=== PATIENT | female | born 1935 | race Caucasian/White ===

== ENCOUNTER 2023-06-01 07:39 | Observation (INO) | payer OTHER ==
--- OUTSIDE RECORDS SUMMARY | 2023-06-01 07:43 | XMS REPORT | Continuity of Care Document ---
:1935 Author Organization [facility] t Address [address] [facility] [address] [place] [address] Care Team Providers Name Role Phone Tal Casarez MD Primary Care Physician Arjun ESCALONA, Francisco Hernandez Attending Clinician LUIGI NAVARRO Attending Clinician Unavailable MD MONTERROSO DDS JAIME D Attending Clinician Unavailable CARLTON MONTERROSO Attending Clinician Unavailable CARLA GONZALEZ Attending Clinician Unavailable SKYLER MORALES Attending Clinician Unavailable Vijay Rosario Attending Clinician Vijay Rosario Attending Clinician CARLTON MONTERROSO Admitting Clinician Unavailable MD MONTERROSO DDS JAIME D Admitting Clinician Unavailable Payers Payer Name Policy Type Policy Number Effective Date Expiration Date S ource Problems Condition Condition Condition Status Onset Resolution Last Treating Co mments Source Name Details Category Date Date Treatment Clinician Date Essential Essential Disease Active 2020-07 [facility] hypertensi hypertensi 07-28 on on 00:00: Hospita 00 l Hypercalce Hypercalce Disease Active 2020-07 M ethodi maggy maggy 07-28 00:00: Hospita 00 l Inflammato Inflammato Disease Active 2020-07 M ethodi ry ry 07-25 st conditions conditions 00:00: Ho spita of jaws of jaws 00 l 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 Social History Social Habit Start Date Stop Date Quantity Comments Source [facility] Alcohol intake 2021-05-27 2021-05-27 Current Gnosticism 00:00:00 00:00:00 non-drinker of Hospital alcohol (finding) History of Social 2021-05-27 2021-05-[address] function 00:00:00 00:00:00 Hospital Tobacco use and 2018-08-06 2018-08-06 Smokeless Gnosticism exposure 00:00:00 00:00:00 tobacco non-user Hospital Social History 2016-06-24 2016-06-24 [facility] 05:59:00 05:59:00 Sex Ass[birth year] At [birth year] Gnosticism 00:00:00 00:00:00 [facility] Smoking Status Start Date Stop Date Source Never smoked tobacco Gnostic[facility] H ospital Medications Ordered Filled Start Stop Current Ordering Indication Dosage Frequency Signature Comments Components Source Medication Medication Date Date Medication? Clinician (SIG) Name Name aspirin 2020-07 Yes 81mg QD Take 81 mg Meth taqueria (ECOTRIN) 1-[address] 81 MG 16:42: daily. Hospita enteric 45 l coated tablet FOLIC 2020-07 Yes 1{tbl} QD Take 1 [facility] ACID/MULTIV 1-[address] IT-MIN/LUTE 16:42: mouth Hospi ta IN (CENTRUM 45 every l SILVER morning. ORAL) cholecalcif 2020-07 Yes 800U QD Take 800 Me thodi nelly, 1-[address] vitamin D3, 16:42: mouth Hospi ta (VITAMIN 45 daily. l D3) 1,000 unit tablet calcium 2020-07 Yes Q.5D Take by [facility] carbonate 1-[address] (CALTRATE 16:42: (two) Hospita 600 ORAL) 45 times a l day. chlorhexidi 2020-07 Yes 15mL Q.5D Apply 15 Me thodi ne 1-[address] (PERIDEX) 00:00: mouth or Hosp duran 0.12 % 00 throat 2 l solution (two) times a day. All further refills through Dr. Yoli galloway 2020-07 Yes Use daily M ethodi e glycol 1-[address] (MIRALAX) 00:00: package Hospi ta 17 gram 00 instructio l packet ns for constipati on. It is over-the-c ounter acetaminoph 2020-07 Yes Use as Meth taqueria en 1-[address] (TYLENOL) 00:00: package Hospi ta 325 MG 00 instructio l tablet ns for pain. It is over-the-c ounter bisacodyL 2020-07 Yes If no BM Meth taqueria (DULCOLAX) 1-12 by 05/29, st 10 mg 00:00: please use Hospit a suppository 00 suppositor l y per package instructio ns. It is over-the-c ounter lisinopril Yes 1{tbl} QD Take 1 Met hodi (PRINIVIL,Z 1-[address] ESTRIL) 5 00:00: mouth Hospita mg tablet 00 every l morning. simvastatin Yes 1{tbl} QD Take 1 Me thodi (ZOCOR) 40 1-[address] MG tablet 00:00: mouth Hospita 00 nightly. l metoprolol Yes 1{tbl} Q.5D Take 1 Met hodi succinate 1-[address] XL 00:00: mouth 2 Hospita (TOPROL-XL) 00 (two) l 50 mg 24 hr times a tablet day. amLODIPine Yes 5mg QD Take 5 mg Me thodi (NORVASC) 5 1-[address] mg tablet 00:00: every Hospita 00 morning. l Immunizations Ordered Immunization Filled Immunization Date Status Commen ts Source Name Name [facility] COVID-19 MRNA Unknown Completed Met [facility] COVID-19 MRNA Unknown Completed Met [facility] FLUZONE HIGH-DOSE PF Unknown Completed [facility] Procedures Procedure Date / Time Performed Performing Clinician Sourc e XR CHEST 2 VW 2022-07-05 17:03:[facility] LEFT 2022-07-05 17:02:44 [facility] Plan of Care Planned Activity Planned Date Details Comments Source Future Scheduled 2023-05-10 SHINGLES VACCINES (1 Met [facility] Test 16:45:05 of 2) [code = SHINGLES VACCINES (1 of 2)] Future Scheduled 2023-05-10 65+ PNEUMOCOCCAL [facility] Test 16:45:05 VACCINE (1 - PCV) [code = 65+ PNEUMOCOCCAL VACCINE (1 - PCV)] Future Scheduled 2023-05-10 COVID-19 VACCINE (3 - [facility] Test 16:45:05 season) [code = COVID-19 VACCINE (3 - season)] Future Scheduled 2023-05-10 INFLUENZA VACCINE (#1) [facility] Test 16:45:05 [code = INFLUENZA VACCINE (#1)] Encounters Start End Encounter Admission Attending Care Care Encounter Source Date/Time Date/Time Type Type Clinicians Facility Department ID 2022-07-05 2022-07-05 Office Arjun, 1.2.840.1 [id number] Method[facility] 11:00:00 14:40:27 Visit Francisco Hernandez [id number] 3.430.2.7 Hospit a .3.330928 l .8 2022-07-05 2022-07-05 Outpatient [facility] [id number] [place] 00:00:00 00:00:00 767 Method i 2022-07-05 2022-07-05 Outpatient [facility] [id number] [place] 00:00:00 00:00:00 914 Method i 2022-07-05 2022-07-05 Outpatient [facility] [id number] [place] 00:00:00 00:00:[address] 2022-07-05 2022-07-05 Travel 1.2.840.1 [id number] [facility] 00:00:00 00:00:[address] 3.430.2.7 0.2.7.3.698 Ho spita .3.106614 084.8 l .8 2021-06-16 2021-06-16 Outpatient [facility] [id number] [place] 00:00:00 00:00:[address] 2021-06-16 2021-06-16 Outpatient [facility] [id number] [place] 00:00:00 00:00:[address] 2021-06-16 2021-06-16 Outpatient [facility] [id number] [place] 00:00:00 00:00:[address] 2021-05-25 2021-05-28 Inpatient RAGHAVON, LUIGI [facility] [id number] [place] 00:00:00 00:00:[address] 2021-05-24 2021-05-24 Outpatient GATENO, [facility] [id number] [place] 00:00:00 00:00:00 CARLTON [address] 2021-02-24 2021-02-24 Outpatient MAHMARIAN, [facility] [id number] [place] 00:00:00 00:00:00 CARLA [address] 2021-02-10 2021-02-10 Outpatient MAHMARIAN, [facility] [id number] [place] 00:00:00 00:00:00 CARLA [address] 2021-01-19 2021-01-19 Outpatient MORALES, [facility] [id number] [place] 00:00:00 00:00:00 SKYLER [address] 2021-01-08 2021-01-08 Outpatient MORALES, [facility] [id number] [place] 00:00:00 00:00:00 SKYLER [address] 2021-01-08 2021-01-08 Outpatient MORALES, [facility] [id number] [place] 00:00:00 00:00:00 SKYLER [address] 2021-01-08 2021-01-08 Outpatient MORALES, [facility] [id number] [place] 00:00:00 00:00:00 SKYLER [address] 2021-01-08 2021-01-08 Outpatient MORALES, [facility] [id number] [place] 00:00:00 00:00:00 SKYLER [address] 2021-01-08 2021-01-08 Outpatient MORALES, [facility] [id number] [place] 00:00:00 00:00:00 SKYLER [address] 2020-12-02 2020-12-02 Outpatient MORALES, [facility] [id number] [place] 00:00:00 00:00:00 SKYLER [address] 2020-09-09 2020-09-09 Outpatient MORALES, [facility] [id number] [place] 00:00:00 00:00:00 SKYLER [address] 2020-06-17 2020-06-17 Outpatient MORALES, [facility] [id number] [place] 00:00:00 00:00:00 SKYLER [address] 2020-06-17 2020-06-17 Outpatient [facility] [id number] [place] 00:00:00 00:00:[address] 2020-06-17 2020-06-17 Outpatient MORALES, [facility] [id number] [place] 00:00:00 00:00:00 SKYLER [address] 2020-06-17 2020-06-17 Outpatient MORALES, [facility] [id number] [place] 00:00:00 00:00:00 SKYLER [address] 2020-06-17 2020-06-17 Outpatient MORALES, [facility] [id number] [place] 00:00:00 00:00:00 SKYLER [address] 2020-03-18 2020-03-18 Outpatient MORALES, [facility] [id number] [place] 00:00:00 00:00:00 SKYLER [address] 2019-12-25 2019-12-25 Outpatient MORALES, [facility] [id number] [place] 00:00:00 00:00:00 SKYLER [address] 2019-12-25 2019-12-25 Outpatient MORALES, [facility] [id number] [place] 00:00:00 00:00:00 SKYLER [address] 2019-12-25 2019-12-25 Outpatient MORALES, [facility] [id number] [place] 00:00:00 00:00:00 SKYLER [address] 2019-12-25 2019-12-25 Outpatient MORALES, [facility] [id number] [place] 00:00:00 00:00:00 SKYLER [address] 2019-09-25 2019-09-25 Outpatient MORALES, [facility] [id number] [place] 00:00:00 00:00:00 SKYLER 328 Method i 2019-06-26 2019-06-26 Outpatient CARMEN, [facility] [id number] [place] 00:00:00 00:00:00 SKYLER 168 Method i 2019-06-26 2019-06-26 Outpatient CARMEN [facility] [id number] [place] 00:00:00 00:00:00 SKYLER 167 Method i 2016-08-30 2016-08-31 Outpt Diag nullFlavo [facility] [id number] Memoria 16:57:00 05:59:00 Services r Outpatient 18 l Imaging Miguel [place] 2016-08-30 2016-08-31 Outpt Diag nullFlavo [facility] [id number] Memoria 16:57:00 05:59:00 Services r Outpatient 18 l Carolin [place] 2016-08-30 2016-08-30 Outpatient Vijay Rosario 2.16.840. 2.16.840.1 . [id number] 10:57:00 23:59:00 Stevie [id number] 18 Pablo 3.615.24 5.24 2016-06-23 2016-06-24 Outpt Diag nullFlavo [facility] [id number] Memoria 18:11:00 05:59:00 Services r Outpatient 17 l Imaging Miguel [place] 2016-06-23 2016-06-24 Outpt Diag nullFlavo [facility] [id number] Memoria 18:11:00 05:59:00 Services r Outpatient 17 l Imaging Miguel [place] 2016-06-23 2016-06-23 Outpatient [facility]ij[facility] [id number] 12:11:00 23:59:00 Stevie Shah 2015-06-25 2015-06-26 Outpt Diag nullFlavo [facility] [id number] Memoria 18:43:00 05:59:00 Services r Outpatient 16 l Carolin [place] 2015-06-25 2015-06-26 Outpt Diag nullFlavo [facility] [id number] Memoria 18:43:00 05:59:00 Services r Outpatient 16 l Imaging Miguel [place] 2015-06-25 2015-06-25 Outpatient Vijay Rosario OIP [facility] [id number] 12:43:00 23:59:00 Stevie Shah 2014-07-01 2014-07-02 Outpt Diag nullFlavo [facility] [id number] Memoria 15:11:00 05:59:00 Services r Outpatient 15 l Imaging - [facility] 2014-07-01 2014-07-02 Outpt Diag nullFlavo [facility] [id number] Memoria 15:11:00 05:59:00 Services r Outpatient 15 l Imaging - [facility] 2014-07-01 2014-07-01 Outpatient Vijay Rosario 2.16.840. 2.16.840.1 . [id number] 09:11:00 23:59:00 A W [id number] 15 3.615.0.1 5.0.797 07 3527-04-25 2013-11-09 Outpt Diag nullFlavo [facility] [id number] Memoria 17:38:00 04:59:00 Services r Outpatient 14 l Imaging - [facility] 2013-11-08 2013-11-09 Outpt Diag nullFlavo [facility] [id number] Memoria 17:38:00 04:59:00 Services r Outpatient 14 l Imaging - [facility] 2013-11-08 2013-11-08 Outpatient Vijay Rosario 2.16.840. 2.16.840.1 . [id number] 12:38:00 23:59:00 A W [id number] 14 3.615.0.1 5.0.659 42 0732-04-22 2013-11-06 Outpt Diag nullFlavo [facility] [id number] Memoria 13:50:00 04:59:00 Services r Outpatient 13 l Imaging - [facility] 2013-11-05 2013-11-06 Outpt Diag nullFlavo [facility] [id number] Memoria 13:50:00 04:59:00 Services r Outpatient 13 l Imaging - [facility] 2013-11-05 2013-11-05 Outpatient Vijay Rosario 2.16.840. 2.16.840.1 . [id number] 08:50:00 23:59:00 A W [id number]. [id number] 13 3.615.0.1 5.0.101 01 Results Test Description Test Time Test Comments Results Result Comments Source SARS-CoV-2 (COVID-19) RNA [Presence] in Respiratory sp ecimen by 2021-05-24 16:31:36 HERBIE with probe detection Test Item Value Reference Range Interpretation Comme nts SARS-CoV-2 (COVID-19) RNA [Presence] in Respiratory Not detected No t-Detected specimen by HERBIE with probe detection (test code = 98837-0) Whether patient is employed in a healthcare setting (test code = 33438-4) Whether the patient has symptoms related to condition of interest (test code = 65642-9) Patient was hospitalized because of this condition (test code = 43667-2) Whether the patient was admitted to intensive care unit (ICU) for condition of interest (test code = 16010-2) Whether patient resides in a congregate care setting (test code = 60035-4) YASEMIN RAPP
[2023-06-01] MEDS ORDERED: MORPHINE 2 MG/ML SYR ONE ×3 (08:17→09:22)
[2023-06-01 08:35] LABS: Absolute Lymphocytes (CBC) 1.4 K/uL (0.7-4.9); Hematocrit 35.5 % (36.0-45.0); Lymphocytes % 24.8 % (15.3-44.8); MPV 7.7 fL (7.6-11.3); Platelets 306 thou/uL (152-406); RBC Red Blood Cell Count 3.73 M/uL (3.86-4.86)
[2023-06-01 08:48] LABS: Potassium 3.8 mEq/L (3.5-5.1)
--- NOTE | 2023-06-01 09:49 | RAD REPORT ---
EXAM DESCRIPTION: CTAbdomen Pelvis W Contrast - 06/01/2023 9:32 am CLINICAL HISTORY: right leg pain COMPARISON: CT ABD PELVIS W CONTRAST dated 01/24/2008 TECHNIQUE: CT of the abdomen and pelvis was performed. All CT scans are performed using dose optimization technique as appropriate and may include automated exposure control or mA/KV adjustment according to patient size. FINDINGS: Lower chest: Mild coronary artery calcifications. Aortic root calcifications. Liver: Mild intrahepatic biliary ductal dilatation. No suspicious liver mass. Biliary: Cholecystectomy. Extrahepatic biliary duct dilatation is likely related to the postcholecyst ectomy state. Stomach: No significant focal abnormality. Duodenum: No significant focal abnormality. Pancreas: No significant abnormality. Spleen: No significant abnormality. Adrenal: No suspicious lesions. Kidney/ureter: No hydronephrosis. No renal calculi. Too small to characterize and/or benign appearing renal lesions are noted. Retroperitoneum: No retroperitoneal adenopathy. Vascular: No aneurysm. Bowel: Moderate stool burden. No bowel obstruction. No appendicitis.. Peritoneum: No ascites or free air. Bladder: Grossly unremarkable. Reproductive: No adnexal masses. Bones: No acute fracture. Grade 1 anterolisthesis of L4 on L5 . Other: n/a IMPRESSION: No acute intra-abdominal or pelvic finding.
[2023-06-01] MEDS ORDERED: predniSONE 20 MG TAB ONE ×2 (11:57→15:47)
--- NOTE | 2023-06-01 12:06 | RAD REPORT ---
EXAM DESCRIPTION: RAD - Lumbar Spine 3 Views - 06/01/2023 12:01 pm CLINICAL HISTORY: PAIN COMPARISON: No comparisons FINDINGS/IMPRESSION: No acute fracture. Slight compression deformity L3 is favored chronic. Grade 1 anterolisthesis of L4 on L5. Mild thoracolumbar curvature. Osteopenia. Disc heights are fairly well-m aintained. Surgical clips in right upper quadrant.
[2023-06-01 12:54] LABS: Urine Bilirubin NEGATIVE (Negative); Urine Blood Negative (Negative); Urine Clarity Clear (Clear); Urine Color Light-Yellow (Yellow); Urine Glucose NEGATIVE (Negative); Urine Protein NEGATIVE (Negative); Urine Urobilinogen Normal (Normal)
[2023-06-01 12:55] LABS: Specific Gravity > 1.030 (1.005-1.030)
--- NOTE | 2023-06-01 13:13 | EDPHYS ---
Physician Documentation [facility] Name: Ernestina Guzman Age: 88 yrs Sex: Female : 1935 Arrival Date: 06/01/2023 Time: 07:39 Bed 13 Private MD: ED Physician Jaren Dozier HPI: 06/01 13:14 This 88 yrs old Female presents to ER via Wheelchair with complaints of Leg Pain - kdr Right. 13:14 The patient presents with pain, that is chronic. kdr 13:16 Patient presents to the ED today with right upper leg pain. Patient has had this kdr discomfort for the past week or 2. She saw her primary care physician last week for the same issue. At that time an ultrasound was ordered but the results were unknown to the patient. Patient continues to have pain in fact is worse today. States that she cannot get comfortable in any position. Patient denies any trauma or prior history of similar pain in the past due to any known issue. Patient is otherwise without complaint. Onset: The symptoms/episode began/occurred Pain has been ongoing for a week or 2 but became worse today, this morning. Severity of symptoms: At their worst the symptoms were moderate severe incapacitating just prior to arrival, in the emergency department the symptoms have improved mildly. The patient has not experienced similar symptoms in the past. The patient has been recently seen by a physician: Dr. Casarez in the office, 1 week(s) ago. Historical: - Allergies: 07:48 No Known Allergies; ll1 - PMHx: 07:48 Hypertensive disorder; Hypercholesterolemia; ll1 - Immunization history:: Adult Immunizations up to date. - Social history:: Smoking status: Patient denies any tobacco usage or history of. ROS: 13:16 Constitutional: Negative for fever, chills, and weight loss, Eyes: Negative for injury, kdr pain, redness, and discharge, ENT: Negative for injury, pain, and discharge, Neck: Negative for injury, pain, and swelling, Cardiovascular: Negative for chest pain, palpitations, and edema, Respiratory: Negative for shortness of breath, cough, wheezing, and pleuritic chest pain, Abdomen/GI: Negative for abdominal pain, nausea, vomiting, diarrhea, and constipation, Back: Negative for injury and pain, : Negative for injury, bleeding, discharge, and swelling, Skin: Negative for injury, rash, and discoloration, Neuro: Negative for headache, weakness, numbness, tingling, and seizure activity. Psych: Negative for depression, anxiety, suicide ideation, homicidal ideation, and hallucinations, Allergy/Immunology: Negative for hives, rash, and allergies, Endocrine: Negative for neck swelling, polydipsia, polyuria, polyphagia, and marked weight changes, Hematologic/Lymphatic: Negative for swollen nodes, abnormal bleeding, and unusual bruising, 13:16 MS/extremity: Positive for swelling, of the Bilaterally, Exam: 13:16 Constitutional: This is a well developed, well nourished patient who is awake, alert, kdr and in mild distress. Head/Face: Normocephalic, atraumatic. Eyes: Pupils equal round and reactive to light, extra-ocular motions intact. Lids and lashes normal. Conjunctiva and sclera are non-icteric and not injected. Cornea within normal limits. Periorbital areas with no swelling, redness, or edema. Neck: Trachea midline, no thyromegaly or masses palpated, and no cervical lymphadenopathy. Supple, full range of motion without nuchal rigidity, or vertebral point tenderness. No Meningismus. Chest/axilla: Normal chest wall appearance and motion. Nontender with no deformity. No lesions are appreciated. Cardiovascular: Regular rate and rhythm with a normal S1 and S2. No gallops, murmurs, or rubs. Normal PMI, no JVD. No pulse deficits. Respiratory: Lungs have equal breath sounds bilaterally, clear to auscultation and percussion. No rales, rhonchi or wheezes noted. No increased work of breathing, no retractions or nasal flaring. Abdomen/GI: Soft, non-tender, with normal bowel sounds. No distension or tympany. No guarding or rebound. No evidence of tenderness throughout. Back: No spinal tenderness. No costovertebral tenderness. Full range of motion. Skin: Warm, dry with normal turgor. Normal color with no rashes, no lesions, and no evidence of cellulitis. Neuro: Awake and alert, GCS 15, oriented to person, place, time, and situation. Cranial nerves II-XII grossly intact. Motor strength 5/5 in all extremities. Sensory grossly intact. Cerebellar exam normal. Normal gait. Psych: Awake, alert, with orientation to person, place and time. Behavior, mood, and affect are within normal limits. 13:16 Musculoskeletal/extremity: Patient has pain to the right upper extremity laterally. It does not extend down past her knee. Pain does not appear to be in a typical sciatica nerve distribution. Pain appears to be more diffuse and lateral. Her lower extremities are slightly swollen (according to the patient) but they appear more swollen on the right than the left. The patient's distal temperature and sensation in both extremities is equal.. Vital Signs: 07:45 BP 187 / 99; Pulse 93; Resp 17; Pulse Ox 99% ; rs5 07:48 Weight 53.52 kg; Height 4 ft. 11 in. ; Pain 10/10; ll1 10:08 BP 168 / 80; Pulse 87; Resp 16; Pulse Ox 99% on R/A; rs5 11:20 BP 137 / 76; Pulse 80; Resp 17; Pulse Ox 99% on R/A; rs5 12:10 BP 145 / 82; Pulse 76; Resp 17; Pulse Ox 99% on R/A; rs5 07:48 Body Mass Index 23.83 (53.52 kg, 149.86 cm) ll1 07:48 Pain Scale: Adult ll1 MDM: 11:41 Data reviewed: vital signs, nurses notes. ED course: I discussed the case with Dr. sherry Casarez. He asked me to start the patient on steroids and have her follow-up with him this next week. Prior to discharge he asked that the plain films of the lumbar spine be performed as well. The patient is otherwise stable in the ED and much improved with pain medication.. 13:13 Patient medically screened. [facility] 06/01 07:57 Order name: CBC with Diff; Complete Time: 09:04 [facility] 06/01 07:57 Order name: Chem 7; Complete Time: 09:04 [facility] 06/01 07:57 Order name: Urinalysis w/ reflexes; Complete Time: 13:04 [facility] 06/01 15:12 Order name: Basic Metabolic Panel EDMS 06/01 15:12 Order name: Basic Metabolic Panel EDMS 06/01 15:12 Order name: CBC with Automated Diff EDMS 06/01 15:12 Order name: CBC with Automated Diff EDMS 06/01 07:57 Order name: CT Abd/Pelvis - IV Contrast Only; Complete Time: 09:53 [facility] 06/01 10:22 Order name: Lumbar Spine (3 Views) XRAY; Complete Time: 12:09 kdr 06/01 13:14 Order name: US Extremity Venous Unilateral Ltd; Complete Time: 14:57 kdr 06/01 13:14 Order name: US LE Artery Uni Ltd; Complete Time: 14:57 kdr 06/01 07:57 Order name: Misc. Order: Ultrasound record from last week; Complete Time: 08:26 kdr 06/01 09:54 Order name: VS Recheck; Complete Time: 10:07 kdr Administered Medications: 08:30 Drug: morphine IVP or IV 1 mg IVP once over 2 mins Route: IVP; Infused Over: 2 mins; rs5 Site: left wrist; 08:44 Follow up: Response: No adverse reaction; Pain is unchanged, physician notified rs5 08:30 Drug: Ondansetron IVP 4 mg IVP once; over 2 minutes Route: IVP; Site: left wrist; rs5 08:44 Follow up: Response: No adverse reaction rs5 08:45 Drug: morphine IVP or IV 1 mg IVP once over 2 mins Route: IVP; Infused Over: 2 mins; rs5 Site: left wrist; 08:59 Follow up: Response: No adverse reaction; Pain is unchanged, physician notified rs5 09:00 Drug: morphine IVP or IV 1 mg IVP once over 2 mins Route: IVP; Infused Over: 2 mins; rs5 Site: left wrist; 09:30 Follow up: Response: No adverse reaction; Pain is decreased rs5 11:44 Drug: predniSONE PO 40 mg PO once Route: PO; rs5 12:35 Follow up: Response: No adverse reaction rs5 13:20 Drug: traMADol PO 50 mg PO once Route: PO; rs5 14:00 Follow up: Response: Pain is decreased rs5 Disposition Summary: 06/01/23 13:13 Hospitalization Ordered Notes: Hospitalization Status: Observation kdr Provider: Tripp Casarez Condition: Fair kdr Problem: an ongoing problem kdr Symptoms: have improved kdr Bed/Room Type: Standard kdr Location: Telemetry/MedSurg (observation)(06/01/23 18:02) em1 Room Assignment: 222(06/01/23 18:02) em1 Diagnosis - Pain in right thigh kdr Forms: - Medication Reconciliation Form kdr - SBAR form kdr - Leadership Thank You Letter kdr Signatures: Dispatcher [employer] Jaren Rubi MD MD kdr Giuseppe, Brian em1 Kalpana Gentile, RN RN ll1 Missy Dorsey RN RN kb3 Jeff Almaraz RN RN rs5 Corrections: (The following items were deleted from the chart) 16:27 13:13 Telemetry/MedSurg (observation) kdr kb3 16:27 13:13 kdr kb3 18:02 16:27 [facility] ER HOLD kb3 em1 18:02 16:27 ERHOLD- kb3 em1
--- NOTE | 2023-06-01 13:13 | ER ---
Nurse's Notes [facility] Name: Ernestina Guzman Age: 88 yrs Sex: Female : 1935 Arrival Date: 06/01/2023 Time: 07:39 Bed 13 Private MD: Diagnosis: Pain in right thigh Presentation: 06/01 07:48 Chief complaint: Patient states: R leg pain worse than usual since last night. Saw Dr. rizwana Casarez last week for the same, waiting for results. Coronavirus screen: Client denies travel out of the [place] in the last 14 days. At this time, the client does not indicate any symptoms associated with coronavirus-19. Ebola Screen: Patient denies travel to an Ebola-affected area in the 21 days before illness onset. Initial Sepsis Screen: Does the patient meet any 2 criteria? No. Patient's initial sepsis screen is negative. Does the patient have a suspected source of infection? Yes: Bone or joint infection. Risk Assessment: Do you want to hurt yourself or someone else? Patient reports no desire to harm self or others. Onset of symptoms was May 25, 2020. 07:48 Method Of Arrival: Wheelchair ll1 07:48 Acuity: KWABENA 3 ll1 Triage Assessment: 07:50 General: Appears uncomfortable, Behavior is calm, cooperative, appropriate for age. ll1 Pain: Complains of pain in right leg Pain currently is 10 out of 10 on a pain scale. Quality of pain is described as aching, throbbing. Musculoskeletal: Reports pain in right leg. Historical: - Allergies: 07:48 No Known Allergies; ll1 - PMHx: 07:48 Hypertensive disorder; Hypercholesterolemia; ll1 - Immunization history:: Adult Immunizations up to date. - Social history:: Smoking status: Patient denies any tobacco usage or history of. Screenin:45 [facility] ED Fall Risk Assessment (Adult) History of falling in the last 3 months, rs5 including since admission No falls in past 3 months (0 pts) Confusion or Disorientation No (0 pts) Intoxicated or Sedated No (0 pts) Impaired Gait Yes (1 pt) Mobility Assist Device Used Yes (1 pt) Altered Elimination No (0 pt) Score/Fall Risk Level 0 - 2 = Low Risk Oriented to surroundings, Maintained a safe environment, Educated pt \T\ family on fall prevention, incl call for assistance when getting out of bed, Assessed \T\ reinforced patient's understanding of fall precautions, Provided non-skid footwear. Abuse screen: Denies threats or abuse. Nutritional screening: No deficits noted. Tuberculosis screening: No symptoms or risk factors identified. Assessment: 07:45 General: Appears in no apparent distress. uncomfortable, Behavior is cooperative. Pain: rs5 Complains of pain in right upper leg Pain does not radiate. Pain currently is 8 out of 10 on a pain scale. Quality of pain is described as aching, Pain began several days ago, worse today Is. Neuro: Level of Consciousness is awake, alert, obeys commands, Oriented to person, place, time, situation. Cardiovascular: Heart tones S1 S2 present Rhythm is regular. Respiratory: Airway is patent Respiratory effort is even, unlabored, Respiratory pattern is regular, symmetrical, Breath sounds are clear bilaterally. GI: Abdomen is round non-distended, Bowel sounds present X 4 quads. Abd is soft and non tender X 4 quads. : No signs and/or symptoms were reported regarding the genitourinary system. EENT: No signs and/or symptoms were reported regarding the EENT system. Derm: Skin is intact, Skin is pink, warm \T\ dry. Musculoskeletal: Range of motion: limited in right leg Pt denies recent falls. Swelling noted to lower extremities bilat. 08:44 Pain: Complains of pain in right leg Pain does not radiate. Pain currently is 7 out of rs5 10 on a pain scale. Quality of pain is described as aching, Is continuous. 08:44 Reassessment: Provider notified pt is experiencing pain. rs5 08:59 Reassessment: Pain is unchanged, provider notified pt is experiencing pain. rs5 08:59 Pain: Noted to be grimacing. rs5 09:10 Reassessment: Pt left for CT scan. rs5 09:30 Reassessment: Patient denies pain at this time. Patient states feeling better. Patient rs5 states symptoms have improved. Pt back from CT scan. 10:02 Reassessment: Patient and/or family updated on plan of care and expected duration. Pain rs5 level reassessed. Patient is alert, oriented x 3, equal unlabored respirations, skin warm/dry/pink. 11:11 Reassessment: Pt has been hospitalized, see [facility] for continued pt care. rs5 Vital Signs: 07:45 BP 187 / 99; Pulse 93; Resp 17; Pulse Ox 99% ; rs5 07:48 Weight 53.52 kg; Height 4 ft. 11 in. ; Pain 10/10; ll1 10:08 BP 168 / 80; Pulse 87; Resp 16; Pulse Ox 99% on R/A; rs5 11:20 BP 137 / 76; Pulse 80; Resp 17; Pulse Ox 99% on R/A; rs5 12:10 BP 145 / 82; Pulse 76; Resp 17; Pulse Ox 99% on R/A; rs5 07:48 Body Mass Index 23.83 (53.52 kg, 149.86 cm) ll1 07:48 Pain Scale: Adult ll1 ED Course: 07:42 Patient arrived in ED. mg5 07:43 Jaren Dozier MD is Attending Physician. kdr 07:45 Patient has correct armband on for positive identification. Bed in low position. Call rs5 light in reach. Side rails up X2. 07:48 Arm band placed on Patient placed in an exam room, on a stretcher. ll1 07:49 Triage completed. ll1 07:51 Jeff Almaraz, GABRIELLA is Primary Nurse. rs5 08:29 Inserted saline lock: 24 gauge in left wrist, using aseptic technique. Blood collected. ds4 Missed attempt(s): 24 gauge in right forearm. Bleeding controlled, band aid applied, catheter tip intact. 09:34 CT Abd/Pelvis - IV Contrast Only In Process Unspecified. EDMS 12:03 Lumbar Spine (3 Views) XRAY In Process Unspecified. EDMS 13:11 Tripp Casarez MD is Hospitalizing Provider. kdr 14:06 US Extremity Venous Unilateral Ltd In Process Unspecified. EDMS 14:06 US LE Artery Uni Ltd In Process Unspecified. EDMS 19:10 No provider procedures requiring assistance completed. Patient admitted, IV remains in rs5 place. Administered Medications: 08:30 Drug: morphine IVP or IV 1 mg IVP once over 2 mins Route: IVP; Infused Over: 2 mins; rs5 Site: left wrist; 08:44 Follow up: Response: No adverse reaction; Pain is unchanged, physician notified rs5 08:30 Drug: Ondansetron IVP 4 mg IVP once; over 2 minutes Route: IVP; Site: left wrist; rs5 08:44 Follow up: Response: No adverse reaction rs5 08:45 Drug: morphine IVP or IV 1 mg IVP once over 2 mins Route: IVP; Infused Over: 2 mins; rs5 Site: left wrist; 08:59 Follow up: Response: No adverse reaction; Pain is unchanged, physician notified rs5 09:00 Drug: morphine IVP or IV 1 mg IVP once over 2 mins Route: IVP; Infused Over: 2 mins; rs5 Site: left wrist; 09:30 Follow up: Response: No adverse reaction; Pain is decreased rs5 11:44 Drug: predniSONE PO 40 mg PO once Route: PO; rs5 12:35 Follow up: Response: No adverse reaction rs5 13:20 Drug: traMADol PO 50 mg PO once Route: PO; rs5 14:00 Follow up: Response: Pain is decreased rs5 Medication: 12:36 VIS not applicable for this client. rs5 Outcome: 13:13 Decision to Hospitalize by Provider. kdr 19:10 Admitted to Med/surg accompanied by nurse, via wheelchair, on monitor, with chart, rs5 19:10 Condition: stable 19:10 Instructed on the need for admit, 19:23 Patient left the ED. la4 Signatures: Dispatcher [employer] EDMS Jaren Dozier MD MD kdr Swanson, Donovan ds4 Kalpana Gentile RN RN ll1 Jeff Almaraz RN RN rs5 Maria D Steven mg5 Cali Canas RN RN la4 Corrections: (The following items were deleted from the chart) 09:24 08:40 morphine IVP or IV 1 mg IVP in left wrist over 2 mins rs5 rs5 12:36 10:08 BP 168 / 80; Pulse 87bpm; Resp 16bpm; Pulse Ox 99% 2 lpm Nasal Cannula; rs5 rs5
[2023-06-01] MEDS ORDERED: TRAMADOL HCL 50 MG TAB ONE (13:36)
--- NOTE | 2023-06-01 14:25 | RAD REPORT ---
EXAM DESCRIPTION: US - Extremity Venous Uni Ltd - 06/01/2023 2:04 pm CLINICAL HISTORY: Pain COMPARISON: 05/25/2023. TECHNIQUE: Real-time sonographic evaluation of the right lower extremity deep venous system was perf ormed. FINDINGS: Normal compressibility, flow augmentation, phasic flow and spontaneous flow is identified in the right lower extremity deep venous system. No intraluminal filling defects seen. IMPRESSION: No DVT in the right lower extremity.
--- NOTE | 2023-06-01 14:26 | RAD REPORT ---
EXAM DESCRIPTION: US - Lower Extremity Artery Uni Ltd - 06/01/2023 2:04 pm CLINICAL HISTORY: PAIN COMPARISON: No comparisons TECHNIQUE: Right lower extremity arterial Doppler examination was performed with waveform tracing. FINDINGS: Triphasic waveforms are seen throughout both lower extremity arterial systems to the level of the posterior tibial artery. Biphasic waveforms seen along the dorsalis pedis artery. Mild smooth atherosclerotic plaque along the right SFA. IMPRESSION: Mild peripheral vascular disease.
[2023-06-01] MEDS ORDERED: ACETAMINOPHEN 500 MG TAB PO PRN (15:05)
[2023-06-01] MEDS ORDERED: predniSONE 20 MG TAB PO ONE (15:16)
[2023-06-01] MEDS ORDERED: ACETAMINOPHEN 500 MG TAB ONE (15:47)
[2023-06-01] MEDS ORDERED: HYDROCODONE/APAP 5/325 MG TAB PO PRN (16:10)
[2023-06-01] MEDS ORDERED: ONDANSETRON 4 MG/2 ML VIAL IV PRN (16:11)
[2023-06-01] MEDS ORDERED: ONDANSETRON 4 MG/2 ML VIAL ONE (16:41)
[2023-06-01] MEDS ORDERED: HYDROCODONE/APAP 5/325 MG TAB ONE (16:41)
[2023-06-01] MEDS: ONDANSETRON 4 MG/2 ML VIAL IV PRN ×2 (17:05→20:40)
[2023-06-01 18:14] VITALS: BMI 23.8
[2023-06-01] MEDS ORDERED: INFLUENZA VACCINE (for 6+ mo) 0.5 ML DOSE IMVAC ONE (20:00)
[2023-06-01] MEDS: D5 0.9 NS 1,000 ML IV SCH (20:21)
[2023-06-01] MEDS: GABAPENTIN 100 MG CAP PO SCH (20:21)
--- NOTE | 2023-06-01 21:08 | HP ---
Date of Admission: 06/01/2023 Chief Complaint: Back pain, leg pain, and not feeling good. History Of Present Illness: This is an 88-year-old pleasant female patient who came into emergency r oom with above-mentioned problem of just not feeling good, having some lower back pain and right leg pain. Denies any fall or injury. No fever, chills. The patient started to have some nausea after s he came into emergency room. She was evaluated in ER and she required some narcotic pain medication for pain control, and she was not safe to go home as determined by ER physician, and I was contacted requesting admission to the hospital, and I saw her in the emergency room this evening and her daught er was present with her at bedside. Allergies: NO KNOWN ALLERGIES. Medications: 1.Aspirin 81 mg daily. 2.Caltrate Plus D 1 tablet 2 times a day. 3.Metoprolol succinate 50 mg takes 1 tablet 2 times a day. 4.Simvastatin 40 mg daily. Review of Systems: Musculoskeletal: As mentioned above. Constitutional: Generalized weakness. All other systems reviewed and negative. Past Medical History: Significant for hypertension, hyperlipidemia, retinal detachment, cataract, th e patient is legally blind, gastroesophageal reflux disease, right breast cancer, and osteoporosis. 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 Family History: Father had lupus. Sister had coronary artery disease. Social History: Negative for smoking and alcohol use. Physical Examination: Vital Signs: Height 4 feet 11 inches, weight 118 pounds, blood pressure 117/61, oxygen saturation 99 %, pulse , respiratory rate , temperature . General: The patient appears weaker than normal, not in any distress, but appears to be weak. HEENT: Head atraumatic, normocephalic. Conjunctivae nonerythematous. Sclerae white. Mouth, no thr ush or edema noted. Ears/Nose, no mass, lesion, discharge noted. Neck: Supple. No JVD, lymph nodes, bruit, thyromegaly noted. Lungs: Bilateral good equal air entry. Clear to auscultation. No rhonchi. No rales. Heart: Normal heart sounds, no murmur or gallop. Abdomen: Soft, bowel sounds normal. No guarding, rigidity, tenderness, mass, hepatosplenomegaly, dis tention, or bruit noted. Extremities: No leg edema. No calf tenderness. Skin: No rash, ulcer, cellulitis. Lymphatics: No lymph node enlargement in neck, supraclavicular, infraclavicular region. Neuro: No focal neurological deficit. Chest: Unremarkable. External Genitalia: Deferred. Rectal: Deferred. Labs: White count 5.7, hemoglobin 12.2, platelets 306. Sodium 131, potassium 3.8, chloride 98, bica rb 29, BUN 18, creatinine 1.08, glucose 103. CAT scan of the abdomen and pelvis done today with cont rast shows no acute abnormality. Lumbar spine x-ray shows evidence of degenerative changes and sligh t compression fracture of L3, appears to be chronic. There is also evidence of mild thoracolumbar cu rvature and anterolisthesis of L4 on L5. Venous Doppler of right leg negative for DVT. Right arteri al Doppler shows mild peripheral vascular disease. Impression: 1.Lumbar radiculopathy. 2.Hypertension. 3.Hyperlipidemia. 4.Osteoarthritis, multiple sites. 5.Hyponatremia. 6.Generalized weakness. 7.Debility. 8.Compression fracture of L3 spine. 9.Osteoporosis. 10.Peripheral vascular disease. Plan: We will go ahead and admit the patient to hospital for further evaluation and management of th is problem. We will go ahead and continue pain medication and nausea medication per order. One dose of prednisone was given in the emergency room. We will start her on gabapentin. Home medications w ill be continued per order. Maintenance IV fluid will be given as she is not eating, drinking much t jammie. Fall precaution was ordered. Consult Physical Therapy and I will see her tomorrow for followu p. Details and plan of treatment discussed with the patient and family. MACARIO/MODL Voice ID: [id number]
[2023-06-02 03:37] LABS: Absolute Lymphocytes (CBC) 0.6 K/uL (0.7-4.9); Lymphocytes % 14.1 % (15.3-44.8); MCV 93.6 fL (80-100); MPV 8.7 fL (7.6-11.3); Platelets 280 thou/uL (152-406); RBC Red Blood Cell Count 3.42 M/uL (3.86-4.86)
[2023-06-02 03:47] LABS: Potassium 4.1 mEq/L (3.5-5.1)
[2023-06-02] MEDS: GABAPENTIN 100 MG CAP PO SCH (08:10)
[2023-06-02] MEDS ORDERED: predniSONE 20 MG TAB PO ONE (08:37)
[2023-06-02] MEDS ORDERED: hydroCHLOROthiazide 12.5 MG CAP PO SCH (09:00)
[2023-06-02] MEDS ORDERED: MULTIVITAMIN TAB PO SCH (09:00)
[2023-06-02] MEDS ORDERED: lisinopriL 10 MG TAB PO SCH (09:00)
[2023-06-02] MEDS ORDERED: METOPROLOL XL 50 MG TAB PO SCH (09:00)
[2023-06-02] MEDS ORDERED: HOME MED 1 EA UNK (Lisinopril/Hydrochlorothiazide [Lisinopril-Hctz 10-12.5 Mg Tab] Tablet) PO SCH (09:00)
[2023-06-02 09:05] VITALS: O2SAT 98
[2023-06-02] MEDS: D5 0.9 NS 1,000 ML IV SCH (09:20)
--- NOTE | 2023-06-02 15:15 | DS ---
Date of Discharge: 06/02/2023 Disposition: Discharged to go home. Physical Examination: HEENT: Unremarkable. Lungs: Clear to auscultation. Heart: Sounds normal. Abdomen: Soft. Bowel sounds normal. No guarding, rigidity, tenderness, distention. Extremities: No leg edema. Discharge Medications And Instructions: 1.Continue prior home medication. 2.Prednisone 10 mg, patient to take 3 tablets by mouth daily for 3 days, then 2 tablets daily for 3 days, then 1 tablet daily for 3 days, then stop, take it with food. 3.Gabapentin 100 mg, takes 1 capsule by mouth 2 times a day. 4.Follow up at my office week after next. Hospital Course: This is an 88-year-old very pleasant female patient came into emergency room yester day with complaints of vague back pain and right leg pain. Please see dictated H and P for more info rmation. After patient was evaluated in the ER, she was admitted to the hospital. I saw her in the emergency room yesterday and evaluated her. Patient had routine blood work done. CAT scan of abdome n, pelvis, venous Doppler of right leg, arterial Doppler of both legs, and lumbar spine x-ray. All t he test results reviewed and patient was admitted to the hospital with lumbar radiculopathy. She rec eived 1 dose of prednisone 40 mg p.o. in the emergency room and this morning, I ordered another dose of prednisone 40 mg. Yesterday when I saw her in the emergency room, she was appearing very weak and sleepy and this morning, she is back to her normal self awake, alert, oriented, answering all the qu estions, happy and smiling, lying in the bed with family members present in the room with her. So ov ernight, patient's condition has significantly improved and plan is to discharge her to go home with above-mentioned medication instruction. Family has requested home health and home physical therapy, which we will go ahead and have Social Service help, make arrangements for that. Final Diagnoses: 1.Lumbar radiculopathy. 2.Hypertension. 3.Hyperlipidemia. 4.Osteoarthritis, multiple sites. 5.Hyponatremia. 6.Peripheral vascular disease. 7.Generalized weakness. 8.Debility. 9.Compression fracture of L3 spine. 10.Osteoporosis. Laboratory Data: Reviewed. MACARIO/MODL Voice ID: [id number] Report ID: [id number]
[2023-06-02 19:29] VITALS: BP 138/61; TEMP 98
[2023-06-02] MEDS ORDERED: HOME MED 1 EA UNK (Simvastatin [Zocor*] 40 MG Tablet) PO SCH (21:00)
[2023-06-02] MEDS ORDERED: ATORVASTATIN 20 MG TAB PO SCH (21:00)
[2023-06-02] MEDS ORDERED: ASPIRIN 81 MG CHEWABLE TABLET PO SCH (21:00)
== END 2023-06-02 14:05 | disposition home health service (06) ==
LOC: ER 07:39 → ERHOLD 15:31 → 2ND 18:34
PROVIDERS: ADMIT Internal Medicine; ATTEND Internal Medicine
DX: M54.16 Radiculopathy, lumbar region (principal); I10 Essential (primary) hypertension; E78.5 Hyperlipidemia, unspecified; H54.8 Legal blindness, as defined in USA; K21.9 Gastro-esophageal reflux disease without esophagitis; M81.0 Age-related osteoporosis without current pathological fracture; E87.1 Hypo-osmolality and hyponatremia; R53.81 Other malaise; S32.039D Unspecified fracture of third lumbar vertebra, subsequent encounter for fracture with routine healing; I73.9 Peripheral vascular disease, unspecified; Z85.3 Personal history of malignant neoplasm of breast; Z90.11 Acquired absence of right breast and nipple; M15.9 Polyosteoarthritis, unspecified
CPT/HCPCS: 85025 ×2; 80048 ×2; 36415; 81003; 74177; 72100; 93926; 93971; 97161; 97530 ×2; 96375; 96374; 99285; Q9967; J7512 ×3; J2270 ×3; J2405 ×2; J7042; G0378 ×4

== ENCOUNTER 2023-06-18 22:38 | Emergency (ER) | payer OTHER ==
--- OUTSIDE RECORDS SUMMARY | 2023-06-18 22:50 | XMS REPORT | Continuity of Care Document ---
:1935 Author Organization [facility] t Address [address] [place] [address] Care Team Providers Name Role Phone Tal Casarez MD Primary Care Physician Mike Attending Clinician Unavailable Arjun ESCALONA, Francisco Hernandez Attending Clinician LUIGI NAVARRO Attending Clinician Unavailable MD MONTERROSO DDS JAIME D Attending Clinician Unavailable CARLTON MONTERROSO Attending Clinician Unavailable CARLA GONZALEZ Attending Clinician Unavailable SKYLER MORALES Attending Clinician Unavailable Vijay Rosario Attending Clinician Vijay Rosario Attending Clinician Mike Admitting Clinician Unavailable CARLTON MONTERROSO Admitting Clinician Unavailable MD MONTERROSO DDS JAIME D Admitting Clinician Unavailable Payers Payer Name Policy Type Policy Number Effective Date Expiration Date Yamileth HERRERA (MEDICARE [id number] 2022 REPLACEMENT PPO) 00:00:00 Problems Condition Condition Condition Status Onset Resolution Last Treating Co mments Source Name Details Category Date Date Treatment Clinician Date Pain of Pain of Problem Active 2022-07 Jonelle right knee Right Knee 08-12 Or thope region Region 00:00: dic 00 Sports Medicin e Bilateral Bilateral Problem Active 2022-07 Aza chin hip joint Hip Joint 1- Orth ope pain Pain 00:00: dic 00 Sports Medicin e Pain of Pain of Problem Active 2022-07 Jonelle bilateral Bilateral - Orth ope knee Knee 00:00: dic regions Regions 00 Sports Medicin e Essential Essential Disease Active 2020-07 [facility] hypertensi hypertensi 07-28 [facility] on on 00:00: Hospita 00 l Hypercalce Hypercalce Disease Active 2020-07 M angela winter maggy 07-28 00:00: Hospita 00 l Inflammato Inflammato Disease Active 2020-07 M angela ry ry 07-25 st conditions conditions 00:00: Ho spita of jaws of jaws 00 l 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 Social History Social Habit Start Date Stop Date Quantity Comments Source [facility] Alcohol intake 2021-05-27 2021-05-27 Current [facility] 00:00:00 00:00:00 non-drinker of Hospital alcohol (finding) History of Social 2021-05-27 2021-05-[address] function 00:00:00 00:00:00 Hospital Tobacco use and 2018-08-06 2018-08-06 Smokeless [facility] exposure 00:00:00 00:00:00 tobacco non-user Hospital Social History 2016-06-24 2016-06-24 [facility] 05:59:00 05:59:00 Sex [birth year] At [birth year] [facility] 00:00:00 00:00:00 Hospital Smoking Status Start Date Stop Date Source Never smoked tobacco [facility] Medications Ordered Filled Start Stop [...] 600 ORAL) 45 times a l day. aspirin 2020-07 Yes 81mg QD Take 81 [...] package instructio ns. It is over-the-c ounter chlorhexidi 2020-07 Yes 15mL Q.5D Apply 15 [...] Hospita mg tablet 00 every l morning. lisinopril Yes 1{tbl} QD Take 1 [facility] (PRINIVIL,Z 1-[address] ESTRIL) 5 00:00: mouth Hospita mg tablet 00 every l morning. simvastatin Yes 1{tbl} QD Take 1 [facility] (ZOCOR) 40 1-[address] MG tablet 00:00: mouth Hospita 00 nightly. l simvastatin 2016- Yes 1{tbl} QD Take 1 [facility] [...] tablet 00:00: every Hospita 00 morning. l metoprolol 2017-0 Yes 1{tbl} Q.5D Take 1 Met [facility] succinate 1-[address] XL 00:00: mouth 2 Hospita (TOPROL-XL) 00 (two) l 50 mg 24 hr times a tablet day. amLODIPine 2017- Yes 5mg QD Take 5 mg [facility] (NORVASC) 5 -[address] mg tablet 00:00: every Hospita 00 morning. l gabapentin gabapentin No gabapentin Jonelle 100 mg 100 mg 100 mg [facility] capsule capsule capsule dic TAKE 1 TAKE 1 TAKE 1 Sports CAPSULE BY CAPSULE BY CAPSULE BY Medicin MOUTH TWICE MOUTH TWICE MOUTH e A DAY A DAY TWICE A DAY lisinopril lisinopril No lisinopril Jonelle 10 10 10 Orthope mg-hydrochl mg-hydrochl mg-hydroch dic orothiazide orothiazide lorothiazi Sports 12.5 mg 12.5 mg de 12.5 mg Med icin tablet TAKE tablet TAKE tablet e 1 TABLET BY 1 TABLET BY TAKE 1 MOUTH DAILY MOUTH DAILY TABLET BY IN MORNING IN MORNING MOUTH DAILY IN MORNING lisinopril lisinopril No lisinopril Jonelle 5 mg tablet 5 mg tablet 5 mg O rthope TAKE 1 TAKE 1 tablet dic TABLET BY TABLET BY TAKE 1 Spo rts MOUTH EVERY MOUTH EVERY TABLET BY Medicin DAY DAY MOUTH e EVERY DAY metoprolol metoprolol No metoprolol Jonelle succinate succinate succinate [facility] ER 50 mg ER 50 mg ER 50 mg dic tablet,exte tablet,exte tablet,ext Sports nded nded ended Medicin release 24 release 24 release 24 e hr TAKE 1 hr TAKE 1 hr TAKE 1 TABLET BY TABLET BY TABLET BY MOUTH TWICE MOUTH TWICE MOUTH A DAY A DAY TWICE A DAY prednisone prednisone No prednisone Jonelle 10 mg 10 mg 10 mg [facility] tablet TAKE tablet TAKE tablet dic 3 TABLETS 3 TABLETS TAKE 3 Spo rts BY MOUTH BY MOUTH TABLETS BY Juliet edicin DAILY X3 DAILY X3 MOUTH e DAYS, 2 DAYS, 2 DAILY X3 TABLETS TABLETS DAYS, 2 DAILY X3 DAILY X3 TABLETS DAYS, THEN DAYS, THEN DAILY X3 1 TABLET 1 TABLET DAYS, THEN DAILY X3 DAILY X3 1 TABLET DAYS DAYS DAILY X3 DAYS simvastatin simvastatin No simvastati Jonelle 40 mg 40 mg n 40 mg [facility] tablet TAKE tablet TAKE tablet dic 1 TABLET BY 1 TABLET BY TAKE 1 Sports MOUTH EVERY MOUTH EVERY TABLET BY Medicin DAY IN THE DAY IN THE MOUTH e EVENING EVENING EVERY DAY IN THE EVENING amlodipine amlodipine No amlodipine Jonelle 5 mg tablet 5 mg tablet 5 mg O rthope TAKE 1 TAKE 1 tablet dic TABLET BY TABLET BY TAKE 1 Spo rts MOUTH EVERY MOUTH EVERY TABLET BY Medicin DAY DAY MOUTH e EVERY DAY aspirin 81 aspirin 81 No aspirin 81 Jonelle mg tablet mg tablet mg tablet Orthope Take by Take by Take by dic oral route. oral route. oral S ports route. Medicin e gabapentin gabapentin No gabapentin Jonelle 100 mg 100 mg 100 mg [facility] capsule capsule capsule dic TAKE 1 TAKE 1 TAKE 1 Sports CAPSULE BY CAPSULE BY CAPSULE BY Medicin MOUTH TWICE MOUTH TWICE MOUTH e A DAY A DAY TWICE A DAY lisinopril lisinopril No lisinopril Jonelle 10 10 10 [facility] mg-hydrochl mg-hydrochl mg-hydroch dic orothiazide orothiazide lorothiazi Sports 12.5 mg 12.5 mg de 12.5 mg Med icin tablet TAKE tablet TAKE tablet e 1 TABLET BY 1 TABLET BY TAKE 1 MOUTH DAILY MOUTH DAILY TABLET BY IN MORNING IN MORNING MOUTH DAILY IN MORNING lisinopril lisinopril No lisinopril Jonelle 5 mg tablet 5 mg tablet 5 mg O rthope TAKE 1 TAKE 1 tablet dic TABLET BY TABLET BY TAKE 1 Spo rts MOUTH EVERY MOUTH EVERY TABLET BY Medicin DAY DAY MOUTH e EVERY DAY metoprolol metoprolol No metoprolol Jonelle succinate succinate succinate [facility] ER 50 mg ER 50 mg ER 50 mg dic tablet,exte tablet,exte tablet,ext Sports nded nded ended Medicin release 24 release 24 release 24 e hr TAKE 1 hr TAKE 1 hr TAKE 1 TABLET BY TABLET BY TABLET BY MOUTH TWICE MOUTH TWICE MOUTH A DAY A DAY TWICE A DAY prednisone prednisone No prednisone Jonelle 10 mg 10 mg 10 mg [facility] tablet TAKE tablet TAKE tablet dic 3 TABLETS 3 TABLETS TAKE 3 Spo rts BY MOUTH BY MOUTH TABLETS BY M edicin DAILY X3 DAILY X3 MOUTH e DAYS, 2 DAYS, 2 DAILY X3 TABLETS TABLETS DAYS, 2 DAILY X3 DAILY X3 TABLETS DAYS, THEN DAYS, THEN DAILY X3 1 TABLET 1 TABLET DAYS, THEN DAILY X3 DAILY X3 1 TABLET DAYS DAYS DAILY X3 DAYS simvastatin simvastatin No simvastati Jonelle 40 mg 40 mg n 40 mg [facility] tablet TAKE tablet TAKE tablet dic 1 TABLET BY 1 TABLET BY TAKE 1 Sports MOUTH EVERY MOUTH EVERY TABLET BY Medicin DAY IN THE DAY IN THE MOUTH e EVENING EVENING EVERY DAY IN THE EVENING amlodipine amlodipine No amlodipine Jonelle 5 mg tablet 5 mg tablet 5 mg O rthope TAKE 1 TAKE 1 tablet dic TABLET BY TABLET BY TAKE 1 Spo rts MOUTH EVERY MOUTH EVERY TABLET BY Medicin DAY DAY MOUTH e EVERY DAY aspirin 81 aspirin 81 No aspirin 81 Jonelle mg tablet mg tablet mg tablet [facility] Take by Take by Take by dic oral route. oral route. oral S ports route. Medicin e celecoxib celecoxib No 1capsul Q1D celecoxib Jonelle 200 mg 200 mg e(s) 200 mg [facility] capsule capsule capsule dic Take 1 Take 1 Take 1 Sports capsule capsule capsule Medici n every day every day every day e by oral by oral by oral route with route with route with meals for meals for meals for 30 days. 30 days. 30 days. gabapentin gabapentin No gabapentin Jonelle 100 mg 100 mg 100 mg [facility] capsule capsule capsule dic TAKE 1 TAKE 1 TAKE 1 Sports CAPSULE BY CAPSULE BY CAPSULE BY Medicin MOUTH TWICE MOUTH TWICE MOUTH e A DAY A DAY TWICE A DAY lisinopril lisinopril No lisinopril Jonelle 10 10 10 [facility] mg-hydrochl mg-hydrochl mg-hydroch dic orothiazide orothiazide lorothiazi Sports 12.5 mg 12.5 mg de 12.5 mg Med icin tablet TAKE tablet TAKE tablet e 1 TABLET BY 1 TABLET BY TAKE 1 MOUTH DAILY MOUTH DAILY TABLET BY IN MORNING IN MORNING MOUTH DAILY IN MORNING lisinopril lisinopril No lisinopril Jonelle 5 mg tablet 5 mg tablet 5 mg O rthope TAKE 1 TAKE 1 tablet dic TABLET BY TABLET BY TAKE 1 Spo rts MOUTH EVERY MOUTH EVERY TABLET BY Medicin DAY DAY MOUTH e EVERY DAY metoprolol metoprolol No metoprolol Jonelle succinate succinate succinate [facility] ER 50 mg ER 50 mg ER 50 mg dic tablet,exte tablet,exte tablet,ext Sports nded nded ended Medicin release 24 release 24 release 24 e hr TAKE 1 hr TAKE 1 hr TAKE 1 TABLET BY TABLET BY TABLET BY MOUTH TWICE MOUTH TWICE MOUTH A DAY A DAY TWICE A DAY ondansetron ondansetron No 1 BID ondansetro Jonelle HCl 4 mg HCl 4 mg n HCl 4 mg O rthope tablet Take tablet Take tablet dic 1 tablet 1 tablet Take 1 Sport s twice a day twice a day tablet Medicin by oral by oral twice a e route as route as day by needed. needed. oral route as needed. prednisone prednisone No prednisone Jonelle 10 mg 10 mg 10 mg [facility] tablet TAKE tablet TAKE tablet dic 3 TABLETS 3 TABLETS TAKE 3 Spo rts BY MOUTH BY MOUTH TABLETS BY M edicin DAILY X3 DAILY X3 MOUTH e DAYS, 2 DAYS, 2 DAILY X3 TABLETS TABLETS DAYS, 2 DAILY X3 DAILY X3 TABLETS DAYS, THEN DAYS, THEN DAILY X3 1 TABLET 1 TABLET DAYS, THEN DAILY X3 DAILY X3 1 TABLET DAYS DAYS DAILY X3 DAYS simvastatin simvastatin No simvastati Jonelle 40 mg 40 mg n 40 mg [facility] tablet TAKE tablet TAKE tablet dic 1 TABLET BY 1 TABLET BY TAKE 1 Sports MOUTH EVERY MOUTH EVERY TABLET BY Medicin DAY IN THE DAY IN THE MOUTH e EVENING EVENING EVERY DAY IN THE EVENING tramadol 50 tramadol 50 No 1 Q8H tramadol Jonelle mg tablet mg tablet 50 mg Orth ope Take 1 Take 1 tablet dic tablet tablet Take 1 Sports every 8 every 8 tablet Medicin hours by hours by every 8 e oral route oral route hours by as needed. as needed. oral route as needed. amlodipine amlodipine No amlodipine Jonelle 5 mg tablet 5 mg tablet 5 mg O rthope TAKE 1 TAKE 1 tablet dic TABLET BY TABLET BY TAKE 1 Spo rts MOUTH EVERY MOUTH EVERY TABLET BY Medicin DAY DAY MOUTH e EVERY DAY aspirin 81 aspirin 81 No aspirin 81 Jonelle mg tablet mg tablet mg tablet Orth[facility] Take by Take by Take by dic oral route. oral route. oral S ports route. Medicin e Immunizations Ordered Immunization Filled Immunization Date Status Commen ts Source Name Name [facility] COVID-19 MRNA Unknown Completed [facility] COVID-19 MRNA Unknown Completed Met [facility] FLUZONE HIGH-DOSE PF Unknown Completed [facility] COVID-19 MRNA Unknown Completed [facility] COVID-19 MRNA Unknown Completed [facility] FLUZONE HIGH-DOSE PF Unknown Completed [facility] Vital Signs Vital Name Observation Time Observation Value Comments Source BMI (Body Mass 2023-06-07 00:00:00 23.8 kg/m2 [facility] Index) Sports Medicine Height 2023-06-07 00:00:00 59 [in_i] [facility] Body Weight 2023-06-07 00:00:00 118 [lb_av] [facility] Procedures Procedure Date / Time Performed Performing Clinician Sourc e RAD. EXAM, HIPS, 2023-06-07 00:00:00 [facility] Orth opedic BILAT, PELV,2 VIEWS Sports Medic ine XR, knee, 1 or 2 view 2023-06-07 00:00:00 [facility] Sports Medicine MRI, knee, w/o 2023-06-07 00:00:00 Jonelle Ortho pedic contrast Sports Medicine XR CHEST 2 VW 2022-07-05 17:03:05 [facility] XR HAND 3+ VW LEFT 2022-07-05 17:02:44 [facility] Plan of Care Planned Activity Planned Date Details Comments Source Future Scheduled 2023-06-16 SHINGLES VACCINES (1 Met [facility] Test 13:02:22 of 2) [code = SHINGLES VACCINES (1 of 2)] Future Scheduled 2023-06-16 65+ PNEUMOCOCCAL [facility] Test 13:02:22 VACCINE (1 - PCV) [code = 65+ PNEUMOCOCCAL VACCINE (1 - PCV)] Future Scheduled 2023-06-16 COVID-19 VACCINE (3 - [facility] Test 13:02:22 season) [code = COVID-19 VACCINE (3 - season)] Future Scheduled 2023-06-16 INFLUENZA VACCINE (#1) [facility] Test 13:02:22 [code = INFLUENZA VACCINE (#1)] Future Scheduled 2023-05-10 SHINGLES VACCINES (1 Met [facility] Test 16:45:05 of 2) [code = SHINGLES VACCINES (1 of 2)] Future Scheduled 2023-05-10 65+ PNEUMOCOCCAL [facility] Test 16:45:05 VACCINE (1 - PCV) [code = 65+ PNEUMOCOCCAL VACCINE (1 - PCV)] Future Scheduled 2023-05-10 COVID-19 VACCINE (3 - [facility] Test 16:45:05 season) [code = COVID-19 VACCINE ( season)] Future Scheduled 2023-05-10 INFLUENZA VACCINE (#1) [facility] Test 16:45:05 [code = INFLUENZA VACCINE (#1)] Encounters Start End Encounter Admission Attending Care Care Encounter Source Date/Time Date/Time Type Type Clinicians Facility Department ID 2023-06-13 2023-06-13 Outpatient FOG_Stramel AOSM AO 662 [place] 00:00:00 00:00:00 _Yuan_NP [id number] Orth ope dic Sports Medicin e 2023-06-07 2023-06-07 Outpatient FOG_Stramel AOSM AO 662 [place] 00:00:00 00:00:00 _Yuan_NP [id number] Orth ope dic Sports Medicin e 2023-06-07 2023-06-07 Yuan C AOSM [place] - Ortho [id number] [place] 00:00:00 00:00:00 Angely Garcia 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 [phone] 2022-07-05 2022-07-05 Office Arjun, 1.2.840.1 [id number] Methodi 11:00:00 14:40:27 Visit Francisco Hernandez 70287.1.[address] 3.430.2.7 Hospit a .3.138753 l .8 2022-07-05 2022-07-05 Office Arjun, 1.2.840.1 [id number] Methodi 11:00:00 14:40:27 Visit Francisco Hernandez 25906.1.[address] 3.430.2.7 Hospit a .3.680914 l .8 2022-07-05 2022-07-05 Travel 1.2.840.1 [id number] [id number] Methodi 00:00:00 00:00:[address] 3.430.2.7 0.2.7.3.698 Ho spita .3.726377 084.8 l .8 2022-07-05 2022-07-05 Outpatient [facility] [id number] [place] 00:00:00 00:00:[address] 2022-07-05 2022-07-05 Outpatient [facility] [id number] [place] 00:00:00 00:00:[address] 2022-07-05 2022-07-05 Travel 1.2.840.1 [id number] [id number] Methodi 00:00:00 00:00:00 75569.1.1 350.1.13.43 827 3.430.2.7 0.2.7.3.698 Ho spita .3.993373 084.8 l .8 2021-06-16 2021-06-16 Outpatient [facility] [id number] [place] 00:00:00 00:00:00 246 Method i 2021-06-16 2021-06-16 Outpatient [facility] [id number] [place] 00:00:00 00:00:00 894 Method i 2021-06-16 2021-06-16 Outpatient [facility] [id number] [place] 00:00:00 00:00:00 915 Method i 2021-05-25 2021-05-28 Inpatient RAGHAVON, [facility] [id number] [place] 00:00:00 00:00:00 571 Method i 2021-05-24 2021-05-24 Outpatient GATENO, [facility] [id number] [place] 00:00:00 00:00:00 CARLTON [address] 2021-02-24 2021-02-24 Outpatient MAHMARIAN, [facility] [id number] [place] 00:00:00 00:00:[address] CARLA [address] 2021-02-10 2021-02-10 Outpatient MAHMARIAN, [facility] [id number] [place] 00:00:00 00:00:00 CARLA 213 Method i 2021-01-19 2021-01-19 Outpatient MORALES, [facility] [id number] [place] 00:00:00 00:00:00 SKYLER [address] 2021-01-08 2021-01-08 Outpatient CARMEN, [facility] [id number] [place] 00:00:00 00:00:00 SKYLER [address] 2021-01-08 2021-01-08 Outpatient MORALES, [facility] [id number] [place] 00:00:00 00:00:00 SKYLER [address] 2021-01-08 2021-01-08 Outpatient MORALES, [facility] [id number] [place] 00:00:00 00:00:00 SKYLER [address] 2021-01-08 2021-01-08 Outpatient CARMEN, [facility] [id number] [place] 00:00:00 00:00:00 SKYLER [address] 2021-01-08 2021-01-08 Outpatient MORALES, [facility] [id number] [place] 00:00:00 00:00:00 SKYLER [address] 2020-12-02 2020-12-02 Outpatient MORALES, [facility] [id number] [place] 00:00:00 00:00:00 SKYLER [address] 2020-09-09 2020-09-09 Outpatient CARMEN, [facility] [id number] [place] 00:00:00 00:00:00 SKYLER [address] 2020-06-17 2020-06-17 Outpatient CARMEN, [facility] [id number] [place] 00:00:00 00:00:00 SKYLER [address] 2020-06-17 2020-06-17 Outpatient [facility] [id number] [place] 00:00:00 00:00:[address] 2020-06-17 2020-06-17 Outpatient CARMEN, [facility] [id number] [place] 00:00:00 00:00:00 SKYLER [address] 2020-06-17 2020-06-17 [facility] [id number] [place] 00:00:00 00:00:00 SKYLER [address] 2020-06-17 2020-06-17 [facility] [id number] [place] 00:00:00 00:00:00 SKYLER [address] 2020-03-18 2020-03-18 Outpatient MORALES, [facility] [id number] [place] 00:00:00 00:00:00 SKYLER 549 Method i 2019-12-25 2019-12-25 Outpatient MORALES, [facility] [id number] [place] 00:00:00 00:00:00 SKYLER 661 Method i 2019-12-25 2019-12-25 [facility] [id number] [place] 00:00:00 00:00:00 SKYLER 936 Method i 2019-12-25 2019-12-25 Outpatient MORALES, [facility] [id number] [place] 00:00:00 00:00:00 SKYLER 349 Method i 2019-12-25 2019-12-25 Outpatient MORALES, [facility] [id number] [place] 00:00:00 00:00:00 SKYLER 203 Method i 2019-09-25 2019-09-25 [facility] [id number] [place] 00:00:00 00:00:00 SKYLER 328 Method i 2019-06-26 2019-06-26 Outpatient MORALES, [facility] [id number] [place] 00:00:00 00:00:00 SKYLER 168 Method i 2019-06-26 2019-06-26 Outpatient [facility] [id number] [place] 00:00:00 00:00:00 SKYLER 167 Method i 2016-08-30 2016-08-31 Outpt Diag nullFlavo [facility] [id number] Memoria 16:57:00 05:59:00 Services r Outpatient 18 l Imaging [facility] 2016-08-30 2016-08-31 Outpt Diag nullFlavo [facility] [id number] Memoria 16:57:00 05:59:00 Services r Outpatient 18 l Imaging [facility] 2016-08-30 2016-08-30 Outpatient Vijay Rosario 2.16.840. 2.16.840.1 . [id number] 10:57:00 23:59:00 Stevie [id number]. [id number] Shah 3.615.24 5.24 2016-06-23 2016-06-24 Outpt Diag nullFlavo [facility] [id number] Memoria 18:11:00 05:59:00 Services r Outpatient 17 l Imaging [facility] 2016-06-23 2016-06-24 Outpt Diag nullFlavo [facility] [id number] Memoria 18:11:00 05:59:00 Services r Outpatient 17 l Imaging [facility] 2016-06-23 2016-06-23 Outpatient [facility]ij[facility] [id number] 12:11:00 23:59:00 Stevie Shah 2015-06-25 2015-06-26 Outpt Diag nullFlavo [facility] [id number] Memoria 18:43:00 05:59:00 Services r Outpatient 16 l Imaging [facility] 2015-06-25 2015-06-26 Outpt Diag nullFlavo [facility] [id number] Memoria 18:43:00 05:59:00 Services r Outpatient 16 l [facility] 2015-06-25 2015-06-25 Out[facility] [id number] 12:43:00 23:59:00 Stevie Shah 2014-07-01 2014-07-02 Outpt Diag nullFlavo [facility] [id number] Memoria 15:11:00 05:59:00 Services r Outpatient 15 l [facility] - [facility] 2014-07-01 2014-07-02 Outpt Diag nullFlavo [facility] [id number] Memoria 15:11:00 05:59:00 Services r Outpatient 15 l [facility] - [facility] 2014-07-01 2014-07-01 Outpatient Vijay Rosario 2.16.840. 2.16.840.1 . [id number] 09:11:00 23:59:00 A W [id number] 15 3.615.0.1 5.0.730 06 8969-04-25 2013-11-09 Outpt Diag nullFlavo [facility] [id number] Memoria 17:38:00 04:59:00 Services r Outpatient 14 l Imaging - [facility] 2013-11-08 2013-11-09 Outpt Diag nullFlavo [facility] [id number] Memoria 17:38:00 04:59:00 Services r Outpatient 14 l Imaging - [facility] 2013-11-08 2013-11-08 Outpatient Vijay Rosario 2.16.840. 2.16.840.1 . [id number] 12:38:00 23:59:00 A W [id number] 14 3.615.0.1 5.0.406 86 1959-04-22 2013-11-06 Outpt Diag nullFlavo [facility] [id number] Memoria 13:50:00 04:59:00 Services r Outpatient 13 l Imaging - [facility] 2013-11-05 2013-11-06 Outpt Diag nullFlavo [facility] [id number] Memoria 13:50:00 04:59:00 Services r Outpatient 13 l Imaging - [facility] 2013-11-05 2013-11-05 Outpatient Vijay Rosario 2.16.840. 2.16.840.1 . [id number] 08:50:00 23:59:00 A W [id number]. [id number] 13 3.615.0.1 5.0.101 01 Results Test Description Test Time Test Comments Results Result Comments Source SARS-CoV-2 (COVID-19) RNA [Presence] in Respiratory sp ecimen by 2021-05-24 16:31:36 HERBIE with probe detection Test Item Value Reference Range Interpretation Comme nts SARS-CoV-2 (COVID-19) RNA [Presence] in Respiratory Not detected No t-Detected specimen by HERBIE with probe detection (test code = 49618-9) Whether patient is employed in a healthcare setting (test code = 48425-3) Whether the patient has symptoms related to condition of interest (test code = 98925-7) Patient was hospitalized because of this condition (test code = 27901-6) Whether the patient was admitted to intensive care unit (ICU) for condition of interest (test code = 59728-3) Whether patient resides in a congregate care setting (test code = 12118-3) YASEMIN RAPP
[2023-06-19] MEDS ORDERED: MECLIZINE HCL 12.5 MG TAB ONE (00:31)
[2023-06-19] MEDS ORDERED: ONDANSETRON 4 MG/2 ML VIAL ONE (00:31)
[2023-06-19] MEDS ORDERED: NA CHLORIDE 0.9% 1,000 ML ONE (00:32)
[2023-06-19 00:56] LABS: Absolute Lymphocytes (CBC) 1.1 K/uL (0.7-4.9); Hematocrit 35.5 % (36.0-45.0); Lymphocytes % 12.2 % (15.3-44.8); MCV 95.2 fL (80-100); MPV 7.9 fL (7.6-11.3); Platelets 370 thou/uL (152-406); RBC Red Blood Cell Count 3.73 M/uL (3.86-4.86)
[2023-06-19] MEDS ORDERED: MORPHINE 2 MG/ML SYR ONE (00:58)
[2023-06-19 01:07] LABS: Troponin High Sensitivity 30.1 pg/mL (<58.9)
[2023-06-19 01:17] LABS: Potassium 4.1 mEq/L (3.5-5.1)
[2023-06-19 03:31] LABS: Renal Epithelial <5 /HPF (None Seen); Urine Bacteria None Seen /HPF (<20); Urine Bilirubin NEGATIVE (Negative); Urine Blood Trace (Negative); Urine Clarity Clear (Clear); Urine Color Colorless (Yellow); Urine Glucose NEGATIVE (Negative); Urine Protein NEGATIVE (Negative); Urine RBC <5 /HPF (None Seen); Urine Urobilinogen Normal (Normal)
--- NOTE | 2023-06-19 03:58 | ER ---
Nurse's Notes [facility] Name: Ernestina Guzman Age: 88 yrs Sex: Female : 1935 Arrival Date: 06/18/2023 Time: 22:38 Bed 13 Private MD: Diagnosis: Nausea with vomiting, unspecified;Muscle weakness (generalized) Presentation: 06/18 22:44 Chief complaint: Patient states: nausea and dizziness began x 2 days ago pain in right kl leg x 2 weeks cortisone injection to right knee x 1 week. Coronavirus screen: Vaccine status: Patient reports receiving the 2nd dose of the covid vaccine. Ebola Screen: Patient negative for fever greater than or equal to 101.5 degrees Fahrenheit, and additional compatible Ebola Virus Disease symptoms. Initial Sepsis Screen: Does the patient meet any 2 criteria? No. Patient's initial sepsis screen is negative. Does the patient have a suspected source of infection? No. Patient's initial sepsis screen is negative. Risk Assessment: Do you want to hurt yourself or someone else? Patient reports no desire to harm self or others. 22:44 Method Of Arrival: Wheelchair kl 22:44 Acuity: KWABENA 3 kl Triage Assessment: 22:54 General: Appears uncomfortable, Behavior is cooperative. Pain: Complains of pain in kl right leg. Neuro: Reports dizziness, since yesterday pt reports nausea and dizziness with movement. Historical: - Allergies: 22:48 No Known Allergies; kl - PMHx: 22:48 Hypercholesterolemia; Hypertensive disorder; Arthritis; compression fracture; breast kl cancer; 23:05 legally blind; kl - PSHx: 22:48 right mastectomy; hand tumor removed; Cholecystectomy; kl - Immunization history:: Adult Immunizations Pneumococcal vaccine is up to date. - Social history:: Smoking status: Patient denies any tobacco usage or history of. Screenin/04 00:29 [facility] ED Fall Risk Assessment (Adult) History of falling in the last 3 months, la4 including since admission No falls in past 3 months (0 pts) Confusion or Disorientation No (0 pts) Intoxicated or Sedated No (0 pts) Impaired Gait Yes (1 pt) Mobility Assist Device Used Altered Elimination Yes (1 pt) Score/Fall Risk Level 3 or more points = High Risk Oriented to surroundings, Maintained a safe environment, Educated pt \T\ family on fall prevention, incl call for assistance when getting out of bed, Provided non-skid footwear, Hourly rounding (assess needs \T\ fall precautionary measures) done, Implemented a Fall Risk Plan of Care, Apply high fall risk patient identification: yellow non skid footwear/ fall signage. Abuse screen: Denies threats or abuse. Denies injuries from another. Nutritional screening: No deficits noted. Tuberculosis screening: No symptoms or risk factors identified. Assessment: 00:51 GI: Abdomen is flat, Bowel sounds present X 4 quads. Reports intolerance of fluids, nw1 nausea. 00:52 Musculoskeletal: Reports pain in left hip, right hip, right leg and left leg. nw1 01:20 Reassessment: PT ASSISTED TO BEDSIDE COMMODE X1 RN ASSIST. PT UNABLE TO URINATE. EXT nw1 ASSISTED BACK TO BED AND PURWICK PLACED TO GRAVITY. FAMILY AT BEDSIDE. WILL CONTINUE TO MONITOR. 03:13 Reassessment: PER ORDER, STRAIGHT CATH PERFORMED X2 RN'S. STERILE TECHNIQUE USED. URINE nw1 OBTAINED AND SENT TO LAB VIA TUBING SYSTEM. PT TOLERATED STRAIGHT CATH WELL. Vital Signs: 06/18 22:44 BP 164 / 66; Pulse 81; Resp 18; Temp 98(O); Pulse Ox 100% on R/A; Weight 53.52 kg; Pain kl 2/10; 06/19 00:26 BP 209 / 82 RA Supine (auto/reg); Pulse 83 MON; Resp 23 S; Pulse Ox 98% on R/A; la4 01:19 BP 173 / 80; Pulse 74; Resp 16; Pulse Ox 96% ; nw1 01:20 BP 127 / 61; Pulse 71; Resp 15; Pulse Ox 98% on R/A; nw1 03:14 BP 182 / 82; Pulse 66; Resp 15; Pulse Ox 97% on R/A; nw1 06/18 22:44 Pain Scale: Adult kl Vitals: 00:26 Cardiac Rhythm Assessment Regular Sinus rhythm. la4 Mills Coma Score: 00:26 Eye Response: spontaneous(4). Motor Response: obeys commands(6). Verbal Response: la4 oriented(5). Total: 15. ED Course: 06/18 22:39 Patient arrived in ED. jj6 22:48 Roger Hadley DO is Attending Physician. ms3 22:48 Triage completed. kl 23:26 XRAY Chest (1 view) In Process Unspecified. EDMS 23:52 Cyndee Sue, RN is Primary Nurse. nw1 06/19 00:27 Patient has correct armband on for positive identification. Bed in low position. Call la4 light in reach. Side rails up X2. Adult w/ patient. Provided Education on: notified of plan of care. Client placed on continuous cardiac and pulse oximetry monitoring. NIBP monitoring applied. 00:29 uncomfortable. Awaiting lab results. la4 00:29 No provider procedures requiring assistance completed. Inserted saline lock: 20 gauge la4 in left forearm, using aseptic technique. 04:55 IV discontinued, intact, bleeding controlled, No redness/swelling at site. Pressure lg3 dressing applied. Administered Medications: 00:24 Drug: Meclizine PO 50 mg PO once Route: PO; la4 00:24 Drug: Ondansetron PO 4 mg PO once Route: PO; la4 00:25 Drug: NS 0.9% IV 1000 ml IV at 500 ml once Route: IV; Rate: 500 ml; Infused Over: 30 la4 mins; Site: left forearm; Delivery: Primary tubing; 00:52 Drug: morphine IVP or IV 2 mg IVP once over 4 mins Route: IVP; Infused Over: 4 mins; nw1 Site: left wrist; Medication: 00:27 VIS not applicable for this client. la4 Outcome: 03:58 Discharge ordered by MD. ms3 04:55 Discharged to home via wheelchair, with family, lg3 04:55 Condition: stable 04:55 Discharge instructions given to family, caretaker grounds, Instructed on discharge instructions, follow up and referral plans. medication usage, Demonstrated understanding of instructions, follow-up care, medications, Prescriptions given X 1, 04:56 Patient left the ED. lg3 Signatures: Dispatcher [employer] EDMS Karina Gentile RN RN kl Gibson, Lacie RN RN lg3 Roger Hadley DO DO ms3 Ursula Lino jj6 Cali Canas RN RN la4 Cyndee Sue, RN RN nw1 Corrections: (The following items were deleted from the chart) 00:53 00:51 GI: Abdomen is flat, nw1 nw1
--- NOTE | 2023-06-19 03:58 | EDPHYS ---
Physician Documentation [facility] Name: Ernestina Guzman Age: 88 yrs Sex: Female : 1935 Arrival Date: 06/18/2023 Time: 22:38 Bed 13 Private MD: ED Physician Roger Hadley HPI: 06/18 23:50 This 88 yrs old Female presents to ER via Wheelchair with complaints of Dizziness, ms3 Nausea, Hip Pain, Leg Pain. 23:50 88-year-old female with past medical history of vertigo, hypertension, hyperlipidemia, ms3 breast cancer presents to the emergency department for nausea, vomiting, dry heaves, dizziness that began yesterday. Patient also notes she is having mild right hip, right knee, right foot pain. Patient states she is scheduled to see orthopedics for the musculoskeletal pain on June 27. Patient states she has seen pain management for this pain. Patient denies any alleviating or inciting factors. Historical: - Allergies: 22:48 No Known Allergies; kl - PMHx: 22:48 Hypercholesterolemia; Hypertensive disorder; Arthritis; compression fracture; breast kl cancer; 23:05 legally blind; kl - PSHx: 22:48 right mastectomy; hand tumor removed; Cholecystectomy; kl - Immunization history:: Adult Immunizations Pneumococcal vaccine is up to date. - Social history:: Smoking status: Patient denies any tobacco usage or history of. ROS: 23:50 Constitutional: Negative for fever, and chills. Neck: Negative for injury, pain, and ms3 swelling, Cardiovascular: Negative for chest pain, and palpitations. Respiratory: Negative for shortness of breath, cough, wheezing, and pleuritic chest pain, 23:50 Abdomen/GI: Positive for nausea and vomiting, Negative for abdominal pain, diarrhea, 23:50 MS/extremity: Positive for Right hip, right leg, right foot pain, 23:50 All other systems are negative, Exam: 23:50 Constitutional: This is a well developed, well nourished patient who is awake, alert, ms3 and in no acute distress. Head/Face: Normocephalic, atraumatic. Neck: Trachea midline, no cervical lymphadenopathy. Supple, full range of motion without nuchal rigidity, or vertebral point tenderness. No Meningismus. Chest/axilla: Normal chest wall appearance and motion. Nontender with no deformity. Cardiovascular: Regular rate and rhythm with a normal S1 and S2. No gallops, murmurs, or rubs. Normal PMI, no JVD. No pulse deficits. Respiratory: Lungs have equal breath sounds bilaterally, clear to auscultation and percussion. No rales, rhonchi or wheezes noted. No increased work of breathing, no retractions or nasal flaring. Abdomen/GI: Soft, non-tender, with normal bowel sounds. No distension or tympany. No guarding or rebound. No evidence of tenderness throughout. Skin: Warm, dry with normal turgor. Normal color with no rashes, no lesions, and no evidence of cellulitis. MS/ Extremity: Pulses equal, no cyanosis. Neurovascular intact. Full, normal range of motion. 06/19 01:09 ECG was reviewed by the Attending Physician. ms3 Vital Signs: 06/18 22:44 BP 164 / 66; Pulse 81; Resp 18; Temp 98(O); Pulse Ox 100% on R/A; Weight 53.52 kg; Pain kl 2/10; 06/19 00:26 BP 209 / 82 RA Supine (auto/reg); Pulse 83 MON; Resp 23 S; Pulse Ox 98% on R/A; la4 01:19 BP 173 / 80; Pulse 74; Resp 16; Pulse Ox 96% ; nw1 01:20 BP 127 / 61; Pulse 71; Resp 15; Pulse Ox 98% on R/A; nw1 03:14 BP 182 / 82; Pulse 66; Resp 15; Pulse Ox 97% on R/A; nw1 06/18 22:44 Pain Scale: Adult kl Roberto Coma Score: 00:26 Eye Response: spontaneous(4). Motor Response: obeys commands(6). Verbal Response: la4 oriented(5). Total: 15. MDM: 06/18 23:25 Patient medically screened. ms3 23:50 Differential diagnosis: cardiac arrhythmia, generalized weakness, idiopathic dizziness, ms3 vertigo. 06/19 03:58 Data reviewed: vital signs, nurses notes, lab test result(s), radiologic studies, and ms3 as a result, I will discharge patient. I considered the following discharge prescriptions or medication management in the emergency department Medications were administered in the Emergency Department. See MAR. Independent interpretation of the following test(s) in the Emergency Department EKG: See my EKG interpretation above. Historians other than the Patient: Family Member: . Counseling: I had a detailed discussion with the patient and/or guardian regarding the historical points, exam findings, and any diagnostic results supporting the discharge/admit diagnosis, lab results, radiology results, the need for outpatient follow up, to return to the emergency department if symptoms worsen or persist or if there are any questions or concerns that arise at home. Special discussion: I discussed with the patient/guardian in detail that at this point there is no indication for admission to the hospital. It is understood, however, that if the symptoms persist or worsen the patient needs to return immediately for re-evaluation. ED course: On reevaluation patient symptoms improved, patient is alert, no apparent distress, nontoxic-appearing. Patient to follow-up with her primary care physician in 2 to 3 days. Patient's daughter understands and agrees with plan. All questions were answered. Return precautions discussed include worsening symptoms, or any other concerns. 06/18 23:06 Order name: Basic Metabolic Panel; Complete Time: 01:22 ms3 06/18 23:06 Order name: CBC with Diff; Complete Time: 01:09 ms3 06/18 23:06 Order name: Troponin HS; Complete Time: 01:22 ms3 06/18 23:06 Order name: Urinalysis w/ reflexes; Complete Time: 03:40 ms3 04 02:43 Order name: Troponin High Sensitivity; Complete Time: 03:51 ms3 06/18 23:06 Order name: XRAY Chest (1 view) ms3 06/18 23:06 Order name: EKG; Complete Time: 23:06 ms3 06/18 23:06 Order name: Cardiac monitoring; Complete Time: 00:26 ms3 06/18 23:06 Order name: EKG - Nurse/Tech; Complete Time: 00:26 ms3 06/18 23:06 Order name: IV Saline Lock; Complete Time: 00:26 ms3 06/18 23:06 Order name: Labs collected and sent; Complete Time: 00:26 ms3 06/18 23:06 Order name: O2 Per Protocol; Complete Time: 00:26 ms3 06/18 23:06 Order name: O2 Sat Monitoring; Complete Time: 00:26 ms3 06/19 02:43 Order name: Straight Cath - Urine; Complete Time: 03:09 ms3 EC:09 Rate is 85 beats/min. Rhythm is regular. Left axis deviation noted. PA interval is ms3 normal. QRS interval is normal. Clinical impression: NSR w/ Non-specific ST/T Changes. Interpreted by me. Reviewed by me. Administered Medications: 00:24 Drug: Meclizine PO 50 mg PO once Route: PO; la4 00:24 Drug: Ondansetron PO 4 mg PO once Route: PO; la4 00:25 Drug: NS 0.9% IV 1000 ml IV at 500 ml once Route: IV; Rate: 500 ml; Infused Over: 30 la4 mins; Site: left forearm; Delivery: Primary tubing; 00:52 Drug: morphine IVP or IV 2 mg IVP once over 4 mins Route: IVP; Infused Over: 4 mins; nw1 Site: left wrist; Disposition Summary: 06/19/23 03:58 Discharge Ordered Notes: Location: Home ms3 Condition: Stable ms3 Diagnosis - Nausea with vomiting, unspecified ms3 - Muscle weakness (generalized) ms3 Followup: ms3 - With: Private Physician - When: 2 - 3 days - Reason: Recheck today's complaints Discharge Instructions: - Discharge Summary Sheet ms3 - Nausea and Vomiting, Adult ms3 Forms: - Medication Reconciliation Form ms3 - Thank You Letter ms3 - Antibiotic Education ms3 - Prescription Opioid Use ms3 - Patient Portal Instructions ms3 - Leadership Thank You Letter ms3 Prescriptions: - promethazine 12.5 mg Rectal suppository - insert 1 suppository RECTAL route every 6 hours as needed for nausea and ms3 vomiting; 10 suppository; Refills: 0, Product Selection Permitted Signatures: Dispatcher [employer] Karina Lott RN RN Roger Woods DO DO ms3 Cali Canas RN GABRIELLA laCyndee Hercules RN RN nw1
[2023-06-19 05:08] VITALS: TEMP 98
[2023-06-19 05:12] VITALS: BP 182/82; O2SAT 97
--- NOTE | 2023-06-19 14:04 | RAD REPORT ---
EXAM DESCRIPTION: RAD - Chest Single View - 06/18/2023 11:24 pm CLINICAL HISTORY: Dizziness TECHNIQUE: Frontal view of the chest. COMPARISON: XR Chest dated 02/05/2022 FINDINGS: Lungs: Unremarkable. No consolidation. Pleural space: Unremarkable. No pneumothorax. Heart: Unremarkable. No cardiomegaly. Mediastinum: Unremarkable. Normal mediastinal contour. Bones/joints: Multilevel spondylosis. No acute fracture. Stable sclerotic lesion within the right humeral head. IMPRESSION: No acute disease. Electronically signed by: Madison Nicole MD 06/19/2023 12:40 AM FUR LINER Due to temporary technical issues with the PACS/Fluency reporting system, reports are being signed by the in house radiologist without review as a courtesy to ensure prompt reporting. The interpreting r adiologist is fully responsible for the content of the report.
--- NOTE | 2023-06-20 13:32 | EKG ---
Test Date: 2023-06-19 Test Time: 00:21:32 Insurance Sales Representative: JIM MEASUREMENT RESULTS: Intervals: Rate: 85 RI: 196 QRSD: 74 QT: 380 QTc: 452 [place]: P: 62 RI: 196 QRS: -1 T: 32 INTERPRETIVE STATEMENTS: Normal sinus rhythm Possible Left atrial enlargement Borderline ECG Compared to ECG 06/19/2023 00:19:39 Ventricular premature complex(es) no longer present Myocardial infarct finding no longer present Electronically Signed On 06-20-23 13:27:39 SEARCH ENGINE OPTIMIZATION ANALYST by Yomi Reza
--- NOTE | 2023-06-20 13:32 | EKG ---
Test Date: 2023-06-19 Test Time: 00:19:39 Traveling Sales Executive: JIM MEASUREMENT RESULTS: Intervals: Rate: 82 SD: 202 QRSD: 70 QT: 384 QTc: 448 [place]: P: 73 SD: 202 QRS: -1 T: 26 INTERPRETIVE STATEMENTS: Sinus rhythm with occasional premature ventricular complexes Septal infarct, age undetermined Abnormal ECG Compared to ECG 01/06/2016 20:03:58 Ventricular premature complex(es) now present Myocardial infarct finding now present Electronically Signed On 06-20-23 13:27:42 ARMORED CABLE MACHINE OPERATOR by Yomi Reza
== END 2023-06-19 04:56 | disposition home or self-care (01) ==
LOC: ER 22:38
DX: R11.2 Nausea with vomiting, unspecified (principal); M62.81 Muscle weakness (generalized); I10 Essential (primary) hypertension; Z85.3 Personal history of malignant neoplasm of breast; Z90.11 Acquired absence of right breast and nipple
CPT/HCPCS: 93005 ×2; 85025; 81001; 80048; 36415; 84484 ×2; 71045; 96374; 99284; J8597; J2270; J2405; J7030

== ENCOUNTER 2023-06-23 10:58 | Emergency (ER) | payer OTHER ==
[2023-06-23 11:59] LABS: Absolute Lymphocytes (CBC) 1.2 K/uL (0.7-4.9); Hematocrit 38.7 % (36.0-45.0); MCV 95.3 fL (80-100); MPV 7.7 fL (7.6-11.3); Platelets 372 thou/uL (152-406); RBC Red Blood Cell Count 4.06 M/uL (3.86-4.86)
[2023-06-23 12:18] LABS: Albumin 3.8 g/dL (3.4-5.0); Bilirubin Total 0.9 mg/dL (0.2-1.0); Potassium 3.7 mEq/L (3.5-5.1); Protein, Total 8.3 g/dL (6.4-8.2)
[2023-06-23] MEDS ORDERED: NA CHLORIDE 0.9% 250 ML ONE (13:10)
[2023-06-23] MEDS ORDERED: VANCOMYCIN 1 GM/VIAL ONE (13:10)
--- NOTE | 2023-06-23 13:26 | RAD REPORT ---
EXAM DESCRIPTION: US - Extremity Venous Uni Ltd - 06/23/2023 12:37 pm CLINICAL HISTORY: SWELLING Leg swelling and edema. COMPARISON: Extremity Venous Uni Ltd dated 06/01/2023 FINDINGS: Right lower extremity venous system was interrogated with Doppler technique. Normal flow, compressibility and augmentation was noted. There is no DVT present. IMPRESSION: No evidence of right lower extremity deep venous thrombosis.
--- NOTE | 2023-06-23 13:33 | ER ---
Nurse's Notes [facility] Name: Ernestina Guzman Age: 88 yrs Sex: Female : 1935 Arrival Date: 06/23/2023 Time: 10:58 Bed 14 Private MD: Diagnosis: Cellulitis of right lower limb Presentation: 06/23 11:33 Chief complaint: Right ankle pain, swelling, and redness x 1 week. Denies injury. hb Coronavirus screen: At this time, the client does not indicate any symptoms associated with coronavirus-19. Ebola Screen: No symptoms or risks identified at this time. Initial Sepsis Screen: Does the patient meet any 2 criteria? No. Patient's initial sepsis screen is negative. Does the patient have a suspected source of infection? No. Patient's initial sepsis screen is negative. Risk Assessment: Do you want to hurt yourself or someone else? Patient reports no desire to harm self or others. Onset of symptoms was June 16, 2023. 11:33 Method Of Arrival: Wheelchair hb 11:33 Acuity: KWABENA 3 hb Historical: - Allergies: 11:34 No Known Allergies; hb - PMHx: 11:34 Arthritis; breast cancer; compression fracture; Hypercholesterolemia; Hypertensive hb disorder; legally blind; - PSHx: 11:34 Cholecystectomy; hand tumor removed; right mastectomy; hb - Immunization history:: Adult Immunizations up to date. - Social history:: Smoking status: Patient denies any tobacco usage or history of. Screenin:59 [facility] ED Fall Risk Assessment (Adult) Score/Fall Risk Level 0 - 2 = Low Risk nj1 Oriented to surroundings, Maintained a safe environment, Hourly rounding (assess needs \T\ fall precautionary measures) done. Abuse screen: Denies threats or abuse. Denies injuries from another. Nutritional screening: No deficits noted. Tuberculosis screening: No symptoms or risk factors identified. Assessment: 11:50 General: Appears in no apparent distress. comfortable, Behavior is calm, cooperative, nj1 appropriate for age. Pain: Denies pain. Neuro: Level of Consciousness is awake, alert, obeys commands, Oriented to person, place, situation. Cardiovascular: Patient's skin is warm and dry. Respiratory: Airway is patent Respiratory effort is even, unlabored. 11:50 Derm: Swelling, erythema noted to medial aspect of right ankle. nj1 13:07 Reassessment: Patient appears in no apparent distress at this time. Patient and/or nj1 family updated on plan of care and expected duration. Pain level reassessed. Patient is alert, oriented x 3, equal unlabored respirations, skin warm/dry/pink. 13:35 Reassessment: IV ABX infusing, discharge deferred at this time. nj1 15:17 Reassessment: Patient appears in no apparent distress at this time. Patient and/or nj1 family updated on plan of care and expected duration. Pain level reassessed. Patient is alert, oriented x 3, equal unlabored respirations, skin warm/dry/pink. Vital Signs: 11:33 BP 213 / 92; Pulse 76; Resp 16; Temp 97.9(TE); Pulse Ox 98% on R/A; Weight 53.52 kg; hb Height 4 ft. 11 in. ; Pain 0/10; 13:07 Pulse 66; Resp 17; Pulse Ox 98% on R/A; nj1 15:17 BP 161 / 71; Pulse 73; Resp 16; Temp 97.9(TE); Pulse Ox 97% on R/A; nj1 11:33 Body Mass Index 23.83 (53.52 kg, 149.86 cm) hb 11:33 Pain Scale: Adult hb ED Course: 11:01 Patient arrived in ED. mg5 11:07 Shabana Hunt MD is Attending Physician. sp3 11:25 Nixon Padron, GABRIELLA is Primary Nurse. tm6 11:34 Triage completed. hb 11:34 Arm band placed on. hb 11:50 Inserted saline lock: 22 gauge in left antecubital area, using aseptic technique. Blood nj1 collected. 12:00 Patient has correct armband on for positive identification. Bed in low position. Call nj1 light in reach. Provided Education on: call light, fall precautions. 12:39 US Extremity Venous Unilateral Ltd In Process Unspecified. EDMS 13:32 Tripp Casarez MD is Referral Physician. sp3 15:25 No provider procedures requiring assistance completed. IV discontinued, intact, nj1 bleeding controlled. Administered Medications: 12:51 CANCELLED (Errorr): [id number] mg PO once sp3 13:06 Drug: vancoMYCIN IVPB 1 grams IVPB once over 2 hrs Route: IVPB; Infused Over: 2 hrs; nj1 Site: left antecubital; 15:21 Follow up: Response: No adverse reaction; IV Status: Completed infusion; IV Intake: nj1 250ml Medication: 15:35 VIS not applicable for this client. nj1 Intake: 15:21 IV: 250ml; Total: 250ml. nj1 Outcome: 13:32 Discharge ordered by . sp3 15:30 Discharged to home via wheelchair, with family, nj1 15:30 Condition: stable 15:30 Discharge instructions given to patient, family, Instructed on discharge instructions, follow up and referral plans. medication usage, Demonstrated understanding of instructions, follow-up care, medications, Prescriptions given X 1, 15:37 Patient left the ED. nj1 Signatures: Dispatcher [employer] EDMS Pepper Hernández, RN RN Shabana Hunt MD MD sp3 Taryn Robert RN RN nj1 Maria D Steven 5 Nixon Padron RN RN tm6 Corrections: (The following items were deleted from the chart) 11:37 11:33 Pulse 76bpm; Resp 16bpm; Pulse Ox 98% RA; 53.52 kg; Height 4 ft. 11 in.; BMI: hb 23.8; Pain 0/10, Adult; hb 15:17 13:07 Reassessment: Patient appears in no apparent distress at this time. Patient nj1 and/or family updated on plan of care and expected duration. Pain level reassessed. Patient is alert/active/playful, equal unlabored respirations, skin warm/dry/pink. nj1 15:33 15:17 BP 161 / 71; nj1 nj1
--- NOTE | 2023-06-23 13:34 | EDPHYS ---
Physician Documentation [facility] Name: Ernestina Guzman Age: 88 yrs Sex: Female : 1935 Arrival Date: 06/23/2023 Time: 10:58 Bed 14 Private MD: ED Physician Shabana Hunt HPI: 06/23 11:38 This 88 yrs old Female presents to ER via Wheelchair with complaints of Ankle Swelling. sp3 11:38 88-year-old female with a history of breast cancer, hyperlipidemia, hypertension sp3 presents to the ED with chief complaint right ankle erythema and swelling for the last 3 to 4 days. Patient was sent in by her PCP Dr. Casarez. Differential diagnosis prior to arrival was DVT versus cellulitis and fracture is not on the differential as there is no trauma. No proximal symptoms and patient denies fever, URI symptoms chest pain, shortness of breath, back pain, abdominal pain, vomiting, diarrhea, other rash, bleeding, or any other signs or symptoms on ROS at this time.. Historical: - Allergies: 11:34 No Known Allergies; hb - PMHx: 11:34 Arthritis; breast cancer; compression fracture; Hypercholesterolemia; Hypertensive hb disorder; legally blind; - PSHx: 11:34 Cholecystectomy; hand tumor removed; right mastectomy; hb - Immunization history:: Adult Immunizations up to date. - Social history:: Smoking status: Patient denies any tobacco usage or history of. ROS: 11:39 Constitutional: Negative for fever, chills, and weight loss, Eyes: Negative for injury, sp3 pain, redness, and discharge, ENT: Negative for injury, pain, and discharge, Neck: Negative for injury, pain, and swelling, Cardiovascular: Negative for chest pain, palpitations, and edema, Respiratory: Negative for shortness of breath, cough, wheezing, and pleuritic chest pain, Abdomen/GI: Negative for abdominal pain, nausea, vomiting, diarrhea, and constipation, Back: Negative for injury and pain, Neuro: Negative for headache, weakness, numbness, tingling, and seizure, Psych: Negative for depression, anxiety, suicide ideation, homicidal ideation, and hallucinations, Allergy/Immunology: Negative for hives, rash, and allergies, Endocrine: Negative for neck swelling, polydipsia, polyuria, polyphagia, and marked weight changes, Hematologic/Lymphatic: Negative for swollen nodes, abnormal bleeding, and unusual bruising, 11:39 All other systems are negative, Exam: 11:40 Constitutional: This is a well developed, well nourished patient who is awake, alert, sp3 and in no acute distress. Head/Face: Normocephalic, atraumatic. Eyes: Pupils equal round and reactive to light, extra-ocular motions intact. Lids and lashes normal. Conjunctiva and sclera are non-icteric and not injected. Cornea within normal limits. Periorbital areas with no swelling, redness, or edema. Neck: Trachea midline, no thyromegaly or masses palpated, and no cervical lymphadenopathy. Supple, full range of motion without nuchal rigidity, or vertebral point tenderness. No Meningismus. Chest/axilla: Normal chest wall appearance and motion. Nontender with no deformity. No lesions are appreciated. Cardiovascular: Regular rate and rhythm with a normal S1 and S2. No gallops, murmurs, or rubs. Normal PMI, no JVD. No pulse deficits. Respiratory: Lungs have equal breath sounds bilaterally, clear to auscultation and percussion. No rales, rhonchi or wheezes noted. No increased work of breathing, no retractions or nasal flaring. Abdomen/GI: Soft, non-tender, with normal bowel sounds. No distension or tympany. No guarding or rebound. No evidence of tenderness throughout. Back: No spinal tenderness. No costovertebral tenderness. Full range of motion. Skin: Warm, dry with normal turgor. Normal color with no rashes, no lesions, and no evidence of cellulitis. Psych: Awake, alert, with orientation to person, place and time. Behavior, mood, and affect are within normal limits. 11:40 Musculoskeletal/extremity: Right anterior lateral ankle swelling predominantly around the ankle and overlying erythema without breaks in the skin. Dorsalis pedis pulses normal cap refill is normal distally. Motor sensor exam is also normal.. Vital Signs: 11:33 BP 213 / 92; Pulse 76; Resp 16; Temp 97.9(TE); Pulse Ox 98% on R/A; Weight 53.52 kg; hb Height 4 ft. 11 in. ; Pain 0/10; 13:07 Pulse 66; Resp 17; Pulse Ox 98% on R/A; nj1 15:17 BP 161 / 71; Pulse 73; Resp 16; Temp 97.9(TE); Pulse Ox 97% on R/A; nj1 11:33 Body Mass Index 23.83 (53.52 kg, 149.86 cm) hb 11:33 Pain Scale: Adult hb MDM: 11:22 Patient medically screened. sp3 11:40 Data reviewed: vital signs, nurses notes, lab test result(s), radiologic studies. ED sp3 course: 88-year-old female with right ankle swelling and erythema. Consider cellulitis versus DVT versus dependent edema. Will obtain laboratory values, blood cultures and ultrasound and if workup is negative, we will give 1 dose of antibiotics and discharge patient home on oral antibiotics with PCP follow-up with Dr. Casarez.. 13:31 ED course: No evidence of DVT. We will administer vancomycin 1 dose and send patient sp3 home on Bactrim p.o. and follow-up with Dr. Casarez.. 12 11:35 Order name: Blood Culture Adult (2) sp3 06/23 11:35 Order name: CBC with Diff; Complete Time: 12:23 sp3 06/23 11:35 Order name: CMP; Complete Time: 12:23 sp3 06/23 11:35 Order name: Lactate w/ 2H reflex if indic.; Complete Time: 12:23 sp3 06/23 11:35 Order name: US Extremity Venous Unilateral Ltd; Complete Time: 13:31 sp3 06/23 11:35 Order name: IV Saline Lock - Large Bore; Complete Time: 11:58 sp3 06/23 11:35 Order name: Labs collected and sent; Complete Time: 11:58 sp3 06/23 11:35 Order name: Vital Signs; Complete Time: 11:36 sp3 Administered Medications: 12:51 CANCELLED (Errorr): [id number] mg PO once sp3 13:06 Drug: vancoMYCIN IVPB 1 grams IVPB once over 2 hrs Route: IVPB; Infused Over: 2 hrs; nj1 Site: left antecubital; 15:21 Follow up: Response: No adverse reaction; IV Status: Completed infusion; IV Intake: nj1 250ml Disposition Summary: 06/23/23 13:32 Discharge Ordered Notes: Location: Home sp3 Condition: Stable sp3 Diagnosis - Cellulitis of right lower limb sp3 Followup: sp3 - With: Tripp Casarez MD - When: Upon discharge from the Emergency Department - Reason: Continuance of care Discharge Instructions: - Discharge Summary Sheet sp3 - Cellulitis, Adult sp3 Forms: - Medication Reconciliation Form sp3 - Thank You Letter sp3 - Antibiotic Education sp3 - Prescription Opioid Use sp3 - Patient Portal Instructions sp3 - Leadership Thank You Letter sp3 Prescriptions: - Bactrim DS 800-160 mg Oral Tablet - take 1 tablet ORAL route every 12 hours for 7 days; 14 tablet; Refills: 0, sp3 Product Selection Permitted Signatures: Dispatcher [employer] EDMS Pepper Hernández, RN RN Shabana Hunt MD MD sp3 Taryn Robert RN RN nj1 Corrections: (The following items were deleted from the chart) 12:51 12:51 Ibuprofen PO 800 mg PO once ordered. sp3 sp3
[2023-06-23 16:12] VITALS: TEMP 97.9
[2023-06-23 16:23] VITALS: BP 161/71; O2SAT 97
== END 2023-06-23 15:37 | disposition home or self-care (01) ==
LOC: ER 10:58
DX: L03.115 Cellulitis of right lower limb (principal)
CPT/HCPCS: 96365; 87040 ×2; 85025; 36415; 87205; 83605; 80053; 93971; 99284; 96366; J7050

== ENCOUNTER 2023-06-25 13:38 | Inpatient (IN) | payer OTHER ==
[2023-06-25 14:58] LABS: Absolute Lymphocytes (CBC) 1.2 K/uL (0.7-4.9); Hematocrit 35.9 % (36.0-45.0); Lymphocytes % 20.6 % (15.3-44.8); MCV 95.5 fL (80-100); MPV 7.6 fL (7.6-11.3); Platelets 354 thou/uL (152-406); RBC Red Blood Cell Count 3.76 M/uL (3.86-4.86)
--- NOTE | 2023-06-25 15:03 | RAD REPORT ---
EXAM DESCRIPTION: RAD - Chest Single View - 06/25/2023 2:57 pm CLINICAL HISTORY: generalized weakness Chest pain. COMPARISON: <Comparisons> FINDINGS: Portable technique limits examination quality. The lungs are emphysematous but grossly clear. The heart is upper limit of normal in size. No displac ed fractures. IMPRESSION: No acute intrathoracic process suspected.
[2023-06-25 15:22] LABS: Albumin 3.5 g/dL (3.4-5.0); Bilirubin Direct 0.2 mg/dL (0-0.2); Bilirubin Indirect, Calculated 0.4 mg/dL (0.2-0.8); Bilirubin Total 0.6 mg/dL (0.2-1.0); Magnesium 1.9 mg/dL (1.6-2.4); Potassium 3.9 mEq/L (3.5-5.1); Protein, Total 7.3 g/dL (6.4-8.2)
--- NOTE | 2023-06-25 16:46 | ER ---
Nurse's Notes [facility] Name: Ernestina Guzman Age: 88 yrs Sex: Female : 1935 Arrival Date: 06/25/2023 Time: 13:38 Bed 16 Private MD: Diagnosis: Adult failure to thrive;Acute Kindey Injury Presentation: 06/25 13:56 Chief complaint: Niece concerned patient may be dehydrated, has not been eating or nj1 drinking. More restless than usual Not able to assist on transfers. Seen here on Monday, dx with cellulitis of right ankle, given iv abx then. Coronavirus screen: Vaccine status: Patient reports receiving the 2nd dose of the covid vaccine. Ebola Screen: Patient denies travel to an Ebola-affected area in the 21 days before illness onset. Initial Sepsis Screen: Does the patient meet any 2 criteria? No. Patient's initial sepsis screen is negative. Does the patient have a suspected source of infection? No. Patient's initial sepsis screen is negative. Risk Assessment: Do you want to hurt yourself or someone else? Patient reports no desire to harm self or others. Onset of symptoms was June 23, 2023. 13:56 Method Of Arrival: Wheelchair nj1 13:56 Acuity: [id number] 3 nj1 Historical: - Allergies: 14:00 No Known Allergies; nj1 - PMHx: 14:00 Arthritis; breast cancer; compression fracture; Hypercholesterolemia; Hypertensive nj1 disorder; legally blind; - PSHx: 14:00 Cholecystectomy; hand tumor removed; right mastectomy; nj1 - Immunization history:: Client reports receiving the 2nd dose of the Covid vaccine. - Social history:: Smoking status: Patient denies any tobacco usage or history of. Screenin:55 [facility] ED Fall Risk Assessment (Adult) History of falling in the last 3 months, me1 including since admission No falls in past 3 months (0 pts) Confusion or Disorientation No (0 pts) Intoxicated or Sedated No (0 pts) Impaired Gait No (0 pts) Mobility Assist Device Used No (0 pt) Altered Elimination No (0 pt) Score/Fall Risk Level 0 - 2 = Low Risk Maintained a safe environment, Provided non-skid footwear, Hourly rounding (assess needs \T\ fall precautionary measures) done, Used ambulatory aids as needed (educated on \T\ assisted with). Abuse screen: Denies threats or abuse. Nutritional screening: No deficits noted. Tuberculosis screening: No symptoms or risk factors identified. Assessment: 15:55 General: Appears comfortable, well groomed, well developed, well nourished, Behavior is me1 cooperative, appropriate for age, flat, Reports Niece concerned patient may be dehydrated, has not been eating or drinking. More restless than usual Not able to assist on transfers. Seen here on Monday, dx with cellulitis of right ankle, given iv abx then. Pain: Denies pain. Neuro: Level of Consciousness is awake, alert, obeys commands, Oriented to person, place, situation, Appropriate for age. Cardiovascular: Capillary refill < 3 seconds Patient's skin is warm and dry. Respiratory: Airway is patent Respiratory effort is even, unlabored, Respiratory pattern is regular, symmetrical. GI: Abdomen is round non-distended, Reports niece reports patient is not eating or drinking well. Vital Signs: 13:56 BP 153 / 73; Pulse 80; Resp 17; Temp 98.7(O); Pulse Ox 97% ; Weight 53.52 kg; Height 4 nj1 ft. 11 in. ; Pain 0/10; 14:43 BP 168 / 87; Pulse 84; Resp 18; Pulse Ox 96% on R/A; me1 15:50 BP 123 / 65; Pulse 76; Resp 14; Pulse Ox 100% on R/A; me1 16:50 BP 138 / 62; Pulse 76; Resp 18; Pulse Ox 97% on R/A; me1 17:45 BP 178 / 84; Pulse 83; Resp 16; Pulse Ox 96% on R/A; me1 13:56 Body Mass Index 23.83 (53.52 kg, 149.86 cm) nj1 13:56 Pain Scale: Adult [facility] ED Course: 13:41 Patient arrived in ED. im 14:00 Triage completed. nj1 14:01 Arm band placed on left wrist. nj1 14:05 Roger Hadley DO is Attending Physician. ms3 14:36 Mari Perdomo, GABRIELLA is Primary Nurse. me1 14:52 Inserted saline lock: 20 gauge in left antecubital area, using aseptic technique. me1 14:52 Basic Metabolic Panel Sent. me1 14:52 CBC with Diff Sent. me1 14:52 LFT's Sent. me1 14:52 Magnesium Sent. me1 14:52 Troponin HS Sent. me1 14:59 XRAY Chest (1 view) In Process Unspecified. EDMS 15:55 Patient has correct armband on for positive identification. Bed in low position. Call me1 light in reach. Side rails up X 1. Provided Education on: POC. Verbalized understanding.. 15:55 No provider procedures requiring assistance completed. me1 16:28 Urinalysis w/ reflexes Sent. me1 16:45 Tal Casarez MD is Hospitalizing Provider. ms3 17:34 CT Abd/Pelvis - Without Contrast In Process Unspecified. EDMS 06/26 06:13 Patient admitted, IV remains in place. pf1 Administered Medications: 06/25 17:38 Drug: morphine IVP or IV 2 mg IVP once over 4 mins Route: IVP; Infused Over: 4 mins; me1 Site: left antecubital; 17:38 Drug: NS 0.9% IV 1000 ml IV at 75 ml/hr continuous Route: IV; Rate: 75 ml/hr; Site: me1 left antecubital; 17:42 Drug: Ondansetron IVP 4 mg IVP once; over 2 minutes Route: IVP; Site: left antecubital; me1 06/26 00:44 Drug: Ativan IVP 0.5 mg IVP once Route: IVP; Site: right wrist; nw1 Medication: 06/25 15:55 VIS not applicable for this client. me1 Outcome: 16:45 Decision to Hospitalize by Provider. ms3 06/26 06:12 Admitted to Med/surg accompanied by nurse, via stretcher, room 230, with chart, pf1 Condition: stable 06:13 Patient left the ED. pf1 Signatures: Dispatcher [employer] EDMS Roger Hadley DO DO ms3 Marie Leon RN RN pf1 Taryn Robert, RN RN nj1 Vandana Sánchez Michelle, RN RN me1 Cyndee Sue, RN RN nw1 Corrections: (The following items were deleted from the chart) 06/25 15:54 13:56 Chief complaint: Niece concerned patient may be dehydrated, has not been eating me1 or drinking. More restless than usual Not able to assist on transfers. Seen here on Monday, dx with cellulitis of right ankle, given iv abx then. nj1
--- NOTE | 2023-06-25 16:46 | EDPHYS ---
Physician Documentation [facility] Name: Ernestina Guzman Age: 88 yrs Sex: Female : 1935 Arrival Date: 06/25/2023 Time: 13:38 Bed 16 Private MD: ED Physician Roger Hadley HPI: 06/25 14:20 This 88 yrs old Female presents to ER via Wheelchair with complaints of Nausea/Vomiting.ms3 14:20 88-year-old female with past medical history of arthritis, breast cancer, compression ms3 fracture, hypercholesterolemia, hypertension presents to the emergency department for not eating or drinking that have become worse over the last 2 to 3 days. Patient's generator operator notes patient is not as active as she has been and has been altered starting yesterday. Patient denies pain. Patient endorses nausea. Patient denies vomiting. Historical: - Allergies: 14:00 No Known Allergies; nj1 - PMHx: 14:00 Arthritis; breast cancer; compression fracture; Hypercholesterolemia; Hypertensive nj1 disorder; legally blind; - PSHx: 14:00 Cholecystectomy; hand tumor removed; right mastectomy; nj1 - Immunization history:: Client reports receiving the 2nd dose of the Covid vaccine. - Social history:: Smoking status: Patient denies any tobacco usage or history of. ROS: 14:20 Neck: Negative for injury, pain, and swelling, Cardiovascular: Negative for chest pain, ms3 and palpitations. Respiratory: Negative for shortness of breath, cough, wheezing, and pleuritic chest pain, Abdomen/GI: Negative for abdominal pain, nausea, vomiting, diarrhea, and constipation, Skin: Negative for injury, rash, and discoloration, Neuro: Negative for headache, weakness, numbness, tingling. 14:20 Constitutional: Positive for fatigue, malaise, poor PO intake, 14:20 All other systems are negative, Exam: 14:20 Constitutional: This is a well developed, well nourished patient who is awake, alert, ms3 and in no acute distress. Head/Face: Normocephalic, atraumatic. Neck: Trachea midline, no cervical lymphadenopathy. Supple, full range of motion without nuchal rigidity, or vertebral point tenderness. No Meningismus. Chest/axilla: Normal chest wall appearance and motion. Nontender with no deformity. Cardiovascular: Regular rate and rhythm with a normal S1 and S2. No gallops, murmurs, or rubs. Normal PMI, no JVD. No pulse deficits. Respiratory: Lungs have equal breath sounds bilaterally, clear to auscultation and percussion. No rales, rhonchi or wheezes noted. No increased work of breathing, no retractions or nasal flaring. Abdomen/GI: Soft, non-tender, with normal bowel sounds. No distension or tympany. No guarding or rebound. No evidence of tenderness throughout. MS/ Extremity: Pulses equal, no cyanosis. Neurovascular intact. Full, normal range of motion. 14:20 Skin: cellulitis, that is moderate, on the Left ankle, 16:45 ECG was reviewed by the Attending Physician. ms3 Vital Signs: 13:56 BP 153 / 73; Pulse 80; Resp 17; Temp 98.7(O); Pulse Ox 97% ; Weight 53.52 kg; Height 4 nj1 ft. 11 in. ; Pain 0/10; 14:43 BP 168 / 87; Pulse 84; Resp 18; Pulse Ox 96% on R/A; me1 15:50 BP 123 / 65; Pulse 76; Resp 14; Pulse Ox 100% on R/A; me1 16:50 BP 138 / 62; Pulse 76; Resp 18; Pulse Ox 97% on R/A; me1 17:45 BP 178 / 84; Pulse 83; Resp 16; Pulse Ox 96% on R/A; me1 13:56 Body Mass Index 23.83 (53.52 kg, 149.86 cm) nj1 13:56 Pain Scale: Adult nj1 MDM: 14:19 Patient medically screened. ms3 16:45 Differential diagnosis: Nonspecific abd pain, UTI versus dehydration. Data reviewed: ms3 vital signs, nurses notes, lab test result(s), radiologic studies, and as a result, I will admit patient. Consideration of Admission/Observation Patient was admitted/placed on observation. Management of patient was discussed with the following: Hospitalist: Discussed case with Dr. Casarez and he accepts patient as observation.. I considered the following discharge prescriptions or medication management in the emergency department Medications were administered in the Emergency Department. See MAR. Independent interpretation of the following test(s) in the Emergency Department EKG: See my EKG interpretation above. Historians other than the Patient: Tractor Driver. Counseling: I had a detailed discussion with the patient and/or guardian regarding the historical points, exam findings, and any diagnostic results supporting the discharge/admit diagnosis, lab results, radiology results, the need for further work-up and treatment in the hospital. ED course: Case was discussed with Dr. Casarez and he accepts patient as observation. Discussed plan for observation with patient's generator operator and patient and they understand and agree with plan. All questions were answered. 06/25 14:20 Order name: Basic Metabolic Panel; Complete Time: 15:38 ms3 06/25 14:20 Order name: CBC with Diff; Complete Time: 15:38 ms3 06/25 14:20 Order name: LFT's; Complete Time: 15:38 ms3 06/25 14:20 Order name: Magnesium; Complete Time: 15:38 ms3 06/25 14:20 Order name: Troponin HS; Complete Time: 15:38 ms3 06/25 15:57 Order name: Urinalysis w/ reflexes; Complete Time: 17:23 ms3 06/25 17:42 Order name: Basic Metabolic Panel EDMS 06/25 18:06 Order name: CBC with Automated Diff EDMS 06/25 18:06 Order name: CBC with Automated Diff EDMS 06/25 14:20 Order name: XRAY Chest (1 view); Complete Time: 15:38 ms3 06/25 16:46 Order name: CT Abd/Pelvis - Without Contrast; Complete Time: 17:59 ms3 06/25 14:20 Order name: EKG; Complete Time: 14:20 ms3 06/25 14:20 Order name: Cardiac monitoring; Complete Time: 15:02 ms3 06/25 14:20 Order name: EKG - Nurse/Tech; Complete Time: 15:02 ms3 06/25 14:20 Order name: IV Saline Lock; Complete Time: 14:52 ms3 06/25 14:20 Order name: Labs collected and sent; Complete Time: 14:52 ms3 06/25 14:20 Order name: O2 Per Protocol; Complete Time: 14:43 ms3 06/25 14:20 Order name: O2 Sat Monitoring; Complete Time: 14:43 ms3 EC:45 Rate is 72 beats/min. Rhythm is regular. Left axis deviation noted. AL interval is ms3 normal. QRS interval is normal. Clinical impression: NSR w/ Non-specific ST/T Changes. Interpreted by me. Reviewed by me. Administered Medications: 17:38 Drug: morphine IVP or IV 2 mg IVP once over 4 mins Route: IVP; Infused Over: 4 mins; me1 Site: left antecubital; 17:38 Drug: NS 0.9% IV 1000 ml IV at 75 ml/hr continuous Route: IV; Rate: 75 ml/hr; Site: me1 left antecubital; 17:42 Drug: Ondansetron IVP 4 mg IVP once; over 2 minutes Route: IVP; Site: left antecubital; me1 06/26 00:44 Drug: Ativan IVP 0.5 mg IVP once Route: IVP; Site: right wrist; nw1 Disposition Summary: 06/25/23 16:45 Hospitalization Ordered Notes: Hospitalization Status: Observation ms3 Provider: Tal Casarez ms3 Condition: Stable ms3 Problem: new ms3 Symptoms: are unchanged ms3 Bed/Room Type: Standard ms3 Location: Telemetry/MedSurg (observation)(06/26/23 04:22) Room Assignment: 230(06/26/23 04:39) [facility] Diagnosis - Adult failure to thrive ms3 - Acute Kindey Injury ms3 Forms: - Medication Reconciliation Form ms3 - SBAR form ms3 - Leadership Thank You Letter ms3 Signatures: Dispatcher [employer] EDAndres Vargas PA PA cp Garcia, Cindy, RN RN Roger Hadley DO DO ms3 Taryn Robert RN RN nj1 Mari Perdomo RN RN me1 Chely Wilson [id number] Cyndee Sue RN RN nw1 Corrections: (The following items were deleted from the chart) 06/25 21:06 16:45 Telemetry/MedSurg (observation) ms3 cg 21: 16:45 ms3 cg 06/26 04:22 06/25 21:06 [facility] ER HOLD cg 06/26 04:22 12 21:06 ERHOLD- cg 06/26 04:39 04:22 [id number]
[2023-06-25 16:52] LABS: Specific Gravity 1.025 (1.005-1.030); Urine Bacteria <20 /HPF (<20); Urine Bilirubin NEGATIVE (Negative); Urine Blood Negative (Negative); Urine Clarity Turbid (Clear); Urine Color Yellow (Yellow); Urine Glucose NEGATIVE (Negative); Urine Mucus Slight /HPF (None Seen); Urine Protein 1+ (Negative); Urine RBC <5 /HPF (None Seen); Urine Urobilinogen Normal (Normal); Urine pH 5.5 (5.0-7.0)
--- NOTE | 2023-06-25 17:40 | RAD REPORT ---
EXAM DESCRIPTION: CT - Abdomen Pelvis Wo Contrast - 06/25/2023 5:32 pm CLINICAL HISTORY: Abdominal pain. ABD PAIN COMPARISON: <Comparisons> TECHNIQUE: CT imaging of the abdomen and pelvis was performed without contrast. Solid organ, bowel a nd vascular assessment is limited due to lack of IV and oral contrast. All CT scans are performed using dose optimization technique as appropriate and may include automated exposure control or mA/KV adjustment according to patient size. FINDINGS: The lower lung goetz are clear.Cholecystectomy. The liver, spleen, pancreas, adrenal glands and kidneys are within normal limits for a limited non-co ntrast examination. No bowel obstruction, free air, free fluid or abscess. Moderate retained stool throughout the colon. The appendix is not identified as a discrete structure, however, no secondary findings of appendiciti s are identified. Moderate lower lumbar degenerative changes. IMPRESSION: No acute intra-abdominal or pelvic findings. A limited non-contrast examination was performed as detailed.
[2023-06-25] MEDS ORDERED: ACETAMINOPHEN 500 MG TAB PO PRN ×2 (17:41→18:02)
[2023-06-25] MEDS ORDERED: ONDANSETRON 4 MG (ODT) TAB PO PRN (17:41)
[2023-06-25] MEDS ORDERED: NA CHLORIDE 0.9% 1,000 ML ONE (17:43)
[2023-06-25] MEDS ORDERED: MORPHINE 2 MG/ML SYR ONE (17:43)
[2023-06-25] MEDS ORDERED: ONDANSETRON 4 MG/2 ML VIAL ONE (17:57)
[2023-06-25] MEDS: NA CHLORIDE 0.9% 1,000 ML IV SCH (18:00)
[2023-06-25] MEDS: TRAMADOL HCL 50 MG TAB PO PRN (18:50)
[2023-06-25] MEDS ORDERED: TRAMADOL HCL 50 MG TAB ONE (19:06)
[2023-06-25 19:54] VITALS: BMI 23.8
[2023-06-25] MEDS: ATORVASTATIN 20 MG TAB PO SCH (21:00)
[2023-06-25] MEDS ORDERED: AMOX/K CLAV 500 MG TAB PO ONE (21:00)
[2023-06-25] MEDS: METOPROLOL XL 50 MG TAB PO SCH (21:00)
[2023-06-25] MEDS: GABAPENTIN 100 MG CAP PO SCH (21:00)
[2023-06-25] MEDS ORDERED: METOPROLOL XL 50 MG TAB PO ONE (22:05)
[2023-06-25] MEDS ORDERED: ATORVASTATIN 20 MG TAB ONE (22:05)
[2023-06-25] MEDS ORDERED: ACETAMINOPHEN 500 MG TAB ONE (22:05)
[2023-06-25] MEDS ORDERED: GABAPENTIN 100 MG CAP ONE (22:06)
[2023-06-25] MEDS ORDERED: ONDANSETRON 4 MG (ODT) TAB ONE (22:06)
[2023-06-26] MEDS ORDERED: LORazepam 2 MG/ML VIAL IV ONE (00:44)
[2023-06-26] MEDS ORDERED: LORazepam 2 MG/ML VIAL ONE (00:48)
[2023-06-26 04:55] LABS: Absolute Lymphocytes (CBC) 1.4 K/uL (0.7-4.9); Hematocrit 31.9 % (36.0-45.0); Lymphocytes % 22.3 % (15.3-44.8); MCV 95.4 fL (80-100); MPV 7.6 fL (7.6-11.3); Platelets 336 thou/uL (152-406); RBC Red Blood Cell Count 3.34 M/uL (3.86-4.86)
[2023-06-26 05:14] LABS: Potassium 3.8 mEq/L (3.5-5.1)
[2023-06-26] MEDS: NA CHLORIDE 0.9% 1,000 ML IV SCH ×2 (07:20→20:40)
[2023-06-26] MEDS ORDERED: DEXTROSE 10%-WATER 500 ML IV ONE (08:20)
[2023-06-26] MEDS: AMOX/K CLAV 500 MG TAB PO SCH ×4 (09:00→23:21)
[2023-06-26] MEDS ORDERED: ENOXAPARIN 30 MG/0.3 ML SQ SCH (09:00)
[2023-06-26] MEDS: lisinopriL 10 MG TAB PO SCH (10:59)
[2023-06-26] MEDS: GABAPENTIN 100 MG CAP PO SCH ×3 (10:59→23:21)
[2023-06-26] MEDS: METOPROLOL XL 50 MG TAB PO SCH ×3 (10:59→23:21)
[2023-06-26] MEDS: ROPINIROLE HCL 0.25 MG TAB PO SCH ×3 (11:00→23:20)
--- NOTE | 2023-06-26 11:19 | RAD REPORT ---
EXAM DESCRIPTION: CT - Head Brain Wo Cont - 06/26/2023 8:37 am CLINICAL HISTORY: AMS COMPARISON: No comparisons TECHNIQUE: Noncontrast head CT images were obtained without IV contrast. Multiplanar reformats were generated and reviewed. All CT scans are performed using dose optimization technique as appropriate and may include automated exposure control or mA/KV adjustment according to patient size. FINDINGS: No intracranial hemorrhage, mass, or edema. Midline structures are unremarkable. Mild diffuse parenchymal volume loss. Patchy subcortical and deep white matter hypodensities, nonspecific, but suggestive of chronic small vessel ischemic changes. Leung-white matter differentiation is preserved, without evidence of acute infarct. No abnormal extra- axial fluid collections. Mastoid air cells and visualized portions of the paranasal sinuses are clear. No acute bony findings. IMPRESSION: No evidence of an acute intracranial process. Chronic findings as above.
[2023-06-26] MEDS: ATORVASTATIN 20 MG TAB PO SCH ×2 (21:00→23:21)
[2023-06-26] MEDS: D5 0.9 NS 1,000 ML IV SCH (22:50)
[2023-06-27] MEDS: D5 0.9 NS 1,000 ML IV SCH (00:20)
[2023-06-27 04:27] LABS: Potassium 3.9 mEq/L (3.5-5.1)
[2023-06-27] MEDS: TRAMADOL HCL 50 MG TAB PO PRN (05:30)
--- NOTE | 2023-06-27 07:05 | HP ---
Date of Admission: 06/25/2023 Chief Complaint: Confusion and not eating and drinking enough. History Of Present Illness: This is an 88-year-old female patient, who lives at home and her son phillip morales with her, was brought into emergency room with this problem. The patient's niece contacted me yes terday and informed me that the patient has not been eating, drinking well and has not been urinating quite as much. No fever or chills. No fall injury and with this concern, she was asked to bring e patient to the emergency room. After the patient was evaluated in the ER, she was admitted to the hospital with volume depletion and acute kidney injury. When I saw her this morning, the patient's n iece was present with her and she is the one who provided me all the details. Lately, the patient perales s not been ambulating and she spends time either in bed or in the wheelchair and she gets transferred from bed to wheelchair with assistance. She was recently in hospital with lumbar radiculopathy and she has been seeing painter helper sign on outpatient basis for this problem. As family has r eported the patient has had some confusion lately and poor appetite, but in last 2-3 days, both of ant problems have gotten lot worse. No fever or chills. No abdominal pain, nausea, or vomiting. Physical Examination: Vital Signs: When she first came into ER, temperature 98.7, pulse 80, respiratory rate 17, blood pre ssure 153/73, oxygen saturation 97%. Height 4 feet 11 inches, weight 118 pounds. General: Awake, alert, oriented, not in distress. HEENT: Head atraumatic, normocephalic. Conjunctivae nonerythematous. Sclerae white. Mouth, no thr ush or edema noted. Ears/Nose, no mass, lesion, discharge noted. Neck: Supple. No JVD, lymph nodes, bruit, thyromegaly noted. Lungs: Bilateral good equal air entry. Clear to auscultation. No rhonchi. No rales. Heart: Normal heart sounds, no murmur or gallop. Abdomen: Soft, bowel sounds normal. No guarding, rigidity, tenderness, mass, hepatosplenomegaly, dis tention, or bruit noted. Extremities: No leg edema. No calf tenderness. Skin: Right dorsum foot in the anterior ankle area and slightly medially has faint pink discoloratio n of skin with some warmness. No significant soft tissue swelling noted and this is due to celluliti s for which the patient presented to emergency room few days ago and was started on oral antibiotic. Her oral antibiotic that was started from ER was Bactrim. Lymphatics: No lymph node enlargement in neck, supraclavicular, infraclavicular region. Neuro: No focal neurological deficit. Chest: Unremarkable. External Genitalia: Deferred. Rectal: Deferred. METROLOGY SPECIALIST: The patient is lying in bed, sleeping, not in distress. Does not answer any question except she woke up once when the niece was talking to her and answered one simple questions, otherwise she did not answer any questions. She was noted to be moving all the 4 extremities equally. No focal defici t. No facial asymmetry. Laboratory Data: Yesterday white count 5.8, hemoglobin 12.3, and a platelet count of 354. This morn ing, white count 6.1, hemoglobin 11, and platelets 336. Yesterday, sodium 135, potassium 3.9, chlori de 99, bicarb 27, BUN 24, creatinine 1.46, glucose 91. Liver function tests unremarkable. Today, so dium 133, potassium 3.8, chloride 101, bicarb 24, BUN 25, creatinine 1.36, glucose 70. Urinalysis wa s negative. Chest x-ray; no acute cardiopulmonary changes. CAT scan of the abdomen and pelvis; no a cute intraabdominal findings. Impression: 1.Acute kidney injury. 2.Volume depletion. 3.Altered mental status. 4.Anemia, unspecified. 5.Lumbar radiculopathy. 6.Hypertension. 7.Hyperlipidemia. 8.Osteoarthritis, multiple sites. 9.Generalized weakness. 10.Debility. 11.Compression fracture of L3 spine. 12.Osteoporosis. 13.Peripheral vascular disease. Plan: Admit the patient to hospital for further evaluation and management of this problem. IV fluid normal saline was started for volume depletion and acute kidney injury in emergency room after she w as evaluated and admitted to the hospital. During the course of today, she had hypoglycemia with blo od sugar of 56, so she was given D10W by nursing staff and subsequently her sugar came up and IV flui d was changed to D5 normal saline at 75 cc/hour. We will repeat blood work tomorrow morning. CAT sc an of the head was done today without contrast, came back unremarkable. I have ordered MRI of her terence mbar spine as the patient is in process of getting this evaluated with help of her pain management ph ysician. I did talk to patient's niece regarding advance directives as well as long-term planning an d long-term prognosis, which is poor and we talked about if the patient or the patient's family have discussed this issues in the past and if she is not eating or drinking enough that they would want fe eding tube and in the event of cardiopulmonary arrest, if they want any heroic measures like CPR, def ibrillation, ventilator support or no heroic measures and let the God and nature take its course and keep the patient comfortable and that means do not resuscitate. All these details were discussed with the patient's niece in front of the patient, but the patient di d not participate in any discussion because of her current condition. Niece will communicate with th e patient's children and she is not sure if anyone of them have medical power of compliance assistant, but she wi ll have discussion with the family member. I will see her tomorrow for followup. MACARIO/MODL Voice ID: [id number]
[2023-06-27] MEDS: METOPROLOL XL 50 MG TAB PO SCH (08:48)
[2023-06-27] MEDS: lisinopriL 10 MG TAB PO SCH (08:48)
[2023-06-27] MEDS: AMOX/K CLAV 500 MG TAB PO SCH (08:48)
[2023-06-27] MEDS: ROPINIROLE HCL 0.25 MG TAB PO SCH (08:49)
[2023-06-27] MEDS: GABAPENTIN 100 MG CAP PO SCH (08:49)
[2023-06-27 08:54] VITALS: O2SAT 94
--- NOTE | 2023-06-27 11:26 | RAD REPORT ---
EXAM DESCRIPTION: MRI - Lumbar Spine Suzy Perez- 06/27/2023 11:12 am CLINICAL HISTORY: lumbar radiculopathy Back pain, radiculopathy COMPARISON: No comparisons FINDINGS: Vertebral body heights are within normal limits. No aggressive marrow pattern is observed. No fracture is suspected. The conus medullaris terminates at a normal level. No thickening of the cauda equina or clumping of n erve roots seen. L1-2 level: Mild posterior disc bulge is present. L2-3 level: Mild posterior disc bulge is present mild facet hypertrophy. L3-4 level: Minimal posterior disc bulge with mild facet hypertrophy, greater on the left. Mild narro wing of the anterior inferior aspects of both exit foramina. L4-5 level: Mild anterolisthesis is present with mild to moderate posterior disc bulge. Moderate face t and ligamentum flavum hypertrophy is noted. Findings result in mild central canal stenosis. Mild na rrowing the right exit foramen is also present. L5-S1 level: Minimal anterolisthesis is present with mild posterior disc bulge. Moderate facet hypert rophy is present on the left. No significant central canal stenosis or foraminal narrowing. IMPRESSION: Multilevel mild lumbar degenerative changes are present, greatest at the lower levels. T he findings appear most significant at L4-5. No severe canal stenosis or foraminal stenosis identifie sary.
--- NOTE | 2023-06-27 13:49 | EKG ---
Test Date: 2023-06-25 Test Time: 14:59:22 Mental Measurements Teacher: MEASUREMENT RESULTS: Intervals: Rate: 72 WI: 170 QRSD: 72 QT: 398 QTc: 435 [place]: P: 47 WI: 170 QRS: 9 T: 42 INTERPRETIVE STATEMENTS: Normal sinus rhythm Anterior infarct, age undetermined Abnormal ECG Compared to ECG 06/19/2023 00:21:32 Myocardial infarct finding now present Electronically Signed On 06-27-23 13:41:31 RUNNING SPECIALIST by Yomi Reza
[2023-06-27 17:04] VITALS: BP 179/83; TEMP 97
--- NOTE | 2023-06-27 22:01 | DS ---
Date of Discharge: 06/27/2023 Disposition: Discharged to go home. Physical Examination: HEENT: Unremarkable. Lungs: Clear to auscultation. Heart: Sounds normal. Abdomen: Soft. Bowel sounds normal. No guarding, rigidity, tenderness, distention. Extremities: No leg edema. Skin: The patient had minimal area of redness to the right dorsum foot/anterior ankle region and thi s has almost completely resolved today. There is no evidence of any swelling. Discharge Medications And Instructions: 1.Continue prior home medication except discontinue Bactrim and discontinue lisinopril/HCTZ. 2.Start Augmentin 500 mg 2 times a day for 1 week and lisinopril 10 mg 2 times a day. 3.Follow up at my office in July 2023 and follow up with pain management physician per your appoi ntment. Hospital Course: This is an 88-year-old pleasant female patient, admitted to the hospital with failu re to thrive, not eating and drinking enough, and was brought into ER and after she was evaluated, wayne princess was admitted to the hospital. The patient was admitted with acute kidney injury, volume depletion, and she was started on IV fluid. Initially, she was started on normal saline and yesterday she had hypoglycemia episode, so she was started on D5 normal saline. Her renal function has returned back t o normal today. At the time of admission, the patient had altered mental status, but that has resolv ed. This morning when I saw her, she was awake, alert, answering questions appropriately, and not in any distress. Yesterday, the patient's niece was present in the room with her who is a nurse and I did discuss with her regarding all the details including overall the patient's prognosis is poor. We also talked about living will advance directives and she was going to communicate with the patient's 2 sons and a daughter. We also talked about if the patient keeps on having this problem with poor a ppetite, if family wants to consider feeding tube placement or not and she was going to have all this discussion with family member to make some decisions. Today, the patient's condition has improved s ignificantly and her renal failure and volume depletion problem has resolved and she will be discharg ed to go home in stable condition. Initially, family was not willing to take her home and Social Ser vice was consulted to help with discharge planning and I did request the patient's niece as well as t he patient's son and daughter to come to office to discuss that questions and concerns with me and af ter a few hours, nurse notified me that now family is willing to take her back home and the patient's family never came to office to discuss any details. Final Diagnoses: 1.Acute kidney injury. 2.Volume depletion. 3.Hypertension. 4.Cellulitis, right lower extremity. MACARIO/MODL Voice ID: [id number] Report ID: [id number]
== END 2023-06-27 17:30 | disposition home health service (06) | DRG 683 ==
LOC: ER 13:38 → ERHOLD 18:33 → 2ND 06-26 05:20 → OBSVTOIN 06-27 15:37
PROVIDERS: ADMIT Internal Medicine; ATTEND Internal Medicine
DX: N17.9 Acute kidney failure, unspecified (principal); L03.115 Cellulitis of right lower limb; E86.9 Volume depletion, unspecified; E78.00 Pure hypercholesterolemia, unspecified; I10 Essential (primary) hypertension; D64.9 Anemia, unspecified; M54.16 Radiculopathy, lumbar region; M81.0 Age-related osteoporosis without current pathological fracture; M19.09 Primary osteoarthritis, other specified site; I73.9 Peripheral vascular disease, unspecified; E16.2 Hypoglycemia, unspecified; M48.56XD Collapsed vertebra, not elsewhere classified, lumbar region, subsequent encounter for fracture with routine healing; R62.7 Adult failure to thrive; Z85.3 Personal history of malignant neoplasm of breast; Z90.11 Acquired absence of right breast and nipple; Z90.49 Acquired absence of other specified parts of digestive tract; Z68.23 Body mass index [BMI] 23.0-23.9, adult
CPT/HCPCS: 36415; 70450; 71045; 72148; 74176; 80048; 80076; 81001; 82947; 83735; 84484; 85025; 93005; 99285; G0378; J1650; J2270; J2405; J7030; J7042; Q0162